=== PATIENT | male | born 1930 | race Caucasian/White ===

== ENCOUNTER 2020-12-11 20:29 | Inpatient (IN) | payer MEDICARE ==
--- NOTE | 2020-12-11 21:20 | ED ---
General Adult HPI - General Chief complaint: Recheck/Abnormal Lab/Rx Stated complaint: abn labs Time Seen by Provider: 12/11/20 20:52 Source: patient, EMS, RN notes reviewed Mode of arrival: EMS - History of Present Illness Initial comments: 89-year-old male who presented as a transfer from [facility] in [facility]. Patient is not accompanied by any of the medical record. He had presented there with generalized weakness and pain in his left leg which she states is been going on for several weeks. He's had multiple falls at home. He does report some dyspnea and apparently they have discovered a large pleural effusion during the patient's workup. He was anemic and had an elevated troponin. These records will be requested. - Related Data Home Medications Medication Instructions Recorded Confirmed Docusate [Colace] 100 mg PO DAILY PRN 12/11/20 12/11/20 Ibuprofen [Motrin Ib] 200 mg PO Q8H PRN 12/11/20 12/11/20 Allergies Allergy/AdvReac Type Severity Reaction Status Date / Time No Known Allergies Allergy Verified 12/11/20 21:51 Review of Systems ROS Statement: Those systems with pertinent positive or pertinent negative responses have been documented in the HPI. ROS Other: All systems not noted in ROS Statement are negative. Past Medical History Past Medical History: No Reported History Past Surgical History: No Surgical Hx Reported, Unable to Obtain Smoking Status: Never smoker Past Alcohol Use History: None Reported Past Drug Use History: None Reported General Exam General appearance: alert, in distress (Respiratory distress) Head exam: Present: normocephalic Eye exam: Present: PERRL, periorbital swelling, other (Periorbital ecchymosis and edema) Neck exam: Present: normal inspection. Absent: tenderness, meningismus Respiratory exam: Present: respiratory distress, rales, decreased breath sounds Cardiovascular Exam: Present: regular rate, normal rhythm GI/Abdominal exam: Present: soft. Absent: distended, tenderness Extremities exam: Present: tenderness, pedal edema, other (Patient has significant edema and erythema as well as petechiae and hemorrhage into the skin of the left lower extremity. The left upper extremity is ecchymotic and swollen) Neurological exam: Present: alert Skin exam: Present: warm Course Vital Signs 12/11/20 20:35 Temperature 98.3 F Pulse Rate 82 Respiratory 20 Rate Blood Pressure 110/55 O2 Sat by Pulse 92 L Oximetry - Reevaluation(s) Reevaluation #1: 12/11/20 22:04 I did discuss at length the patient's critical status with his lyirdhuu-si-jur Kathy who will be coming tomorrow with the patient's 2 other daughters. The patient does have a no CODE STATUS. He has been made a DO NOT RESUSCITATE. Medical Decision Making - Medical Decision Making 89-year-old male sent from outside hospital with initial chief complaint of pain in the left arm and left leg falls. Patient had been living alone. He was transferred to this institution due to the fact that all of the surrounding hospitals were unable to accept transfer patient's. Patient had been transferred for both cardiology and pulmonology consultation. He been noted to have a large left pleural effusion on CT of the chest. This was negative for pulmonary embolism according to the medical record. He also had a brain CT whi ch is negative for intracranial hemorrhage. He had ultrasound of the left upper extremity and bilateral lower extremities which were negative for DVT. He had a significant anemia at 6.8. He had a leukocytosis 16.5. He had normal creatinine, relatively normal electrolytes. He had been given 1 g of ceftriaxone prior to transfer for cellulitis. He had been transfused one unit of packed RBCs for anemia. Additionally he had an elevated troponin at 0.47. This was not treated with anticoagulation secondary to this patient's anemia. I did repeat all laboratory testing and blood cultures. An additional gram of ceftriaxone was ordered as well as vancomycin for left leg cellulitis. His troponin will be trended repeat CBC has been ordered regarding his anemia status post transfusion. Both cardiology and pulmonology had been placed on consult. Chest x-ray shows near complete left pleural effusion and CHF. Patient had received both IV fluids and blood transfusion prior to transport. Lasix has been initiated. Case discussed with EM Disposition Clinical Impression: Anemia, Elevated troponin, Cellulitis, Pleural effusion, Do not resuscitate Disposition: ADMITTED IP TO THIS HOSP Condition: Serious Is patient prescribed a controlled substance at d/c from ED?: No Decision to Admit Reason: Admit from EC Decision Date: 12/11/20 Decision Time: 21:49
[2020-12-11] MEDS ORDERED: NALOXONE 0.4 MG/ML 1 ML VIAL IV PRN (21:42)
[2020-12-11] MEDS ORDERED: cefTRIAXone IN SWFI 1,000 MG/10 ML SYRINGE IVP STA (21:44)
[2020-12-11] MEDS ORDERED: VANCOMYCIN IV PER PHARMACY 1 EACH MISC MISCELLANE PRN (21:45)
[2020-12-11] MEDS ORDERED: PANTOPRAZOLE 40 MG/10 ML VIAL IVP STA (21:45)
--- NOTE | 2020-12-11 21:45 | XR ---
EXAMINATION TYPE: XR chest 2V DATE OF EXAM: 12/11/2020 COMPARISON: NONE HISTORY: Weakness TECHNIQUE: 3 views FINDINGS: Heart is moderately enlarged. There is large left pleural effusion and left side pulmonary consolidation. There is pulmonary congestion. Thoracic aorta is atheromatous. 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 IMPRESSION: Left side pulmonary consolidation and pleural fluid. Congestive heart failure.
[2020-12-11] MEDS ORDERED: FUROSEMIDE 10 MG/ML 4 ML VIAL IV STA (21:49)
[2020-12-11 22:20] LABS: Anisocytosis Moderate; HCT 23.9 % (39.0-53.0); HGB 7.5 gm/dL (13.0-17.5); Hypochromasia Marked; MCH 29.9 pg (25.0-35.0); MCHC 31.5 g/dL (31.0-37.0); MCV 94.9 fL (80.0-100.0); Macrocytosis Slight; Mean Platelet Volume 11.4; Platelet Count 62 k/uL (150-450); Poikilocytosis Marked; RBC 2.52 m/uL (4.30-5.90); RDW 21.7 % (11.5-15.5)
[2020-12-11 22:30] LABS: Albumin 2.8 g/dL (3.5-5.0); Calcium 8.1 mg/dL (8.4-10.2); Potassium 5.2 mmol/L (3.5-5.1); Total Protein 5.9 g/dL (6.3-8.2)
[2020-12-11 22:37] LABS: INR 1.4 (<1.2); Partial Thromboplastin Time 24.8 sec (22.0-30.0); Prothrombin Time 14.5 sec (9.0-12.0)
[2020-12-11] MEDS ORDERED: VANCOMYCIN 1,500 MG in SODIUM CHLORIDE 0.9% 250 ML IVPB ONE (23:00)
[2020-12-11] MEDS: MORPHINE SULFATE 2 MG/ML SYRINGE IVP PRN (23:15)
[2020-12-11 23:52] LABS: Band Neutrophils % 5 %; Metamyelocytes % 7 %; Myelocytes % 1 %; Neutrophils % (M) 21 %; Nucleated Red Blood Cells 30 /100 WBC (0-0); Promyelocytes % 5 %; Total Cells Counted 200
[2020-12-11 23:53] LABS: Anisocytosis (M) Present; Blast Cells # (M) 0.52 k/uL (0); Hypochromasia (M) Present; Lymphocytes # (M) 3.01 k/uL (1.0-4.8); Metamyelocytes # (M) 0.92 k/uL (0); Monocytes # (M) 4.59 k/uL (0-1.0); Myelocytes # (M) 0.13 k/uL (0); Polychromasia Present; Promyelocytes # (M) 0.66 k/uL (0); WBC 13.1 k/uL (3.8-10.6)
[2020-12-12] MEDS: ACETAMINOPHEN TAB 325 MG TAB PO PRN ×2 (02:34→09:17)
[2020-12-12 05:40] LABS: Calcium 8.2 mg/dL (8.4-10.2); Potassium 4.5 mmol/L (3.5-5.1)
[2020-12-12 05:45] LABS: Anisocytosis Moderate; HCT 24.8 % (39.0-53.0); HGB 7.4 gm/dL (13.0-17.5); Hypochromasia Marked; MCH 28.8 pg (25.0-35.0); MCHC 29.7 g/dL (31.0-37.0); MCV 97.2 fL (80.0-100.0); Macrocytosis Moderate; Mean Platelet Volume 12.8; Platelet Count 73 k/uL (150-450); Poikilocytosis Marked; RBC 2.56 m/uL (4.30-5.90); RDW 21.5 % (11.5-15.5)
[2020-12-12] MEDS ORDERED: ALPRAZolam 0.25 MG TAB PO STA (06:08)
[2020-12-12 06:48] LABS: Anisocytosis (M) Present; Band Neutrophils % 13 %; Blast Cells # (M) 0.62 k/uL (0); Lymphocytes # (M) 2.18 k/uL (1.0-4.8); Metamyelocytes # (M) 0.62 k/uL (0); Metamyelocytes % 6 %; Monocytes # (M) 2.81 k/uL (0-1.0); Myelocytes # (M) 0.52 k/uL (0); Myelocytes % 5 %; Neutrophils % (M) 19 %; Nucleated Red Blood Cells 35 /100 WBC (0-0); Promyelocytes # (M) 0.42 k/uL (0); Promyelocytes % 4 %; Total Cells Counted 200; WBC 10.4 k/uL (3.8-10.6)
[2020-12-12 06:49] LABS: Hypochromasia (M) Present; Large Platelets Present; Mixed Population RBC Present; Polychromasia Present
--- NOTE | 2020-12-12 08:59 | US ---
EXAMINATION TYPE: US chest DATE OF EXAM: 12/12/2020 COMPARISON: Correlation radiographs 12/11/2020 CLINICAL HISTORY: 89-year-old male left chest pleural effusion. SOB, Pl effusion. Manager Wellness notes: Patient was a 2 person hold TECHNIQUE: Targeted ultrasound of the posterior lower left hemithorax. FINDINGS: EXAM MEASUREMENTS: Left Pleural Effusion pocket size: 10.9 cm Left skin surface to fluid distance: 4.0 cm Left side marked for possible thoracentesis outside the dept. Pulmonologists are able to review the images in the patient?s EMR. IMPRESSIONS: At least a moderate left pleural effusion.
[2020-12-12] MEDS: FUROSEMIDE 10 MG/ML 4 ML VIAL IV SCH ×2 (09:17→20:12)
--- NOTE | 2020-12-12 11:11 | ECHOF ---
Referral Reason:LV function MEASUREMENTS -------- HEIGHT: 182.9 cm WEIGHT: 81.6 kg BP: IVSd: 1.3 cm (0.6 - 1.1) LVIDd: 3.8 cm (3.9 - 5.3) LVPWd: 1.4 cm (0.6 - 1.1) IVSs: 1.4 cm LVIDs: 2.8 cm LVPWs: 1.3 cm Ao Diam: 3.7 cm (2.0 - 3.7) AV Cusp: 1.4 cm (1.5 - 2.6) MV EXCURSION: 23.601 mm (> 18.000) MV EF SLOPE: 134 mm/s (70 - 150) EPSS: 0.6 cm FINDINGS -------- Undetermined rhythm. This was a technically adequate study. Overall left ventricular systolic function is mild-moderately impaired with, an EF between 40 - 45 %. The right ventricle is normal in size. The left atrial size is normal. There is mild aortic valve sclerosis. There is no evidence of aortic regurgitation. Mild mitral annular calcification present. Mild mitral regurgitation is present. Mild tricuspid regurgitation present. Right ventricular systolic pressure is normal at < 35 mmHg. There is no pulmonic regurgitation present. Large Pleural Effusion. CONCLUSIONS -------- 1. Overall left ventricular systolic function is mild-moderately impaired with, an EF between 40 - 45 %. 2. The right ventricle is normal in size. 3. The left atrial size is normal. 4. There is mild aortic valve sclerosis. 5. Mild mitral annular calcification present. 6. Mild mitral regurgitation is present. 7. Mild tricuspid regurgitation present. 8. Large Pleural Effusion. GROUNDS PERSON: Cristy Ogden RDCS
[2020-12-12] MEDS ORDERED: DOCUSATE 100 MG CAP PO PRN (12:36)
--- NOTE | 2020-12-12 12:41 | XR ---
EXAMINATION TYPE: XR chest 1V portable DATE OF EXAM: 12/12/2020 Comparison: 12/11/2020 Clinical History: 89-year-old male status post left thoracentesis Findings: Heart is borderline enlarged. Mild interstitial density. Significant interval improvement of the chelsie ent's previous left pleural effusion. A small left pleural effusion remains. Mild patchy bibasilar de nsities. Unable to exclude a trace left apical 2.5 mm pneumothorax. Impression: 1. Status post thoracentesis with residual small left pleural effusion. 2. Unable to exclude a trace 2.5 mm left apical pneumothorax. Follow-up recommended. 3. Mild patchy bibasilar areas of atelectasis and/or consolidation.
[2020-12-12] MEDS: VANCOMYCIN 1,500 MG in SODIUM CHLORIDE 0.9% 250 ML IVPB SCH (12:54)
--- NOTE | 2020-12-12 13:09 | P.CRDCN ---
History of Present Illness History of present illness: HISTORY OF PRESENTING ILLNESS This is a pleasant 89-year-old male with no significant past medical history. Unknown if patient follows with a perioperative educator. We have been asked to see in consultation for elevated troponin. Patient is seen and examined in the emergency department. He was a transfer from [facility] in [facility]. He had presented there with generalized weakness and pain in his left leg and had multiple falls at home. Patient had been transferred for both card iology and pulmonology consultation. Patient seen and examined at bedside he is confused, He is alert, oriented to self. He is unsure what brought him to the hospital. He denies any pain, chest pain, palpitations, abdominal pain, fever, chills, nausea, vomiting. He is unsure how long his left arm, left leg, and left side have been bruised. He denies history of bleeding problems, coronary artery disease, [place], diabetes, cancer. Echocardiogram obtained which revealed ejection fraction of 4045 percent, mild aortic valve sclerosis, mild mitral regurgitation, mild tricuspid regurgitation, large pleural effusion. Workup at [facility] CT chest revealed large left pleural effusion, with atelectasis of the left lung. This was negative for pulmonary embolism according to the record Fecal occult blood test was negative Brain CT which is negative for intracranial hemorrhage. Ultrasound of the left upper extremity and bilateral lower extremities which were negative for DVT. Labs revealed- he had a significant anemia at 6.8, Lactate was 6.3, WBC 16.8, platelets 65, BUN 17, serum creatinine 0.8, sodium 134, potassium 4.5. elevated troponin at 0.47. He was given 1 g of ceftriaxone prior to transfer for left and right lower extremity cellulitis. He has recieved 1 unit of PRBC for anemia EKG sinus tachycardia, no significant ST-T wave abnormalities Chest xray Large left pleural effusion left sided consoidation, pulmonary congestion. Aneurysm of the aortic arch Laboratory reviewed, WBC 10.4, hemoglobin 10.4, platelets 73, sodium 133, potassium 4.5, BUN 22, serum creatinine 1.07, lactate 4.0, trace 3.04, 0.059 proBNP 15,400 REVIEW OF SYSTEMS At the time of my exam: CONSTITUTIONAL: Denies fever or chills. CARDIOVASCULAR: Denies chest pain, shortness of breath, palpitations. RESPIRATORY: Denies cough. GASTROINTESTINAL: Denies abdominal pain, diarrhea, constipation, nausea or vomiting. MUSCULOSKELETAL: Denies myalgias. NEUROLOGIC: Denies numbness, tingling, headacbe or weakness. GENITOURINARY: Denies burning, hematuria or urgency with micturation. HEMATOLOGIC: +anemia He denies history of bleeding PHYSICAL EXAMINATION Blood pressure 111/79 heart rate and 2 afebrile and maintaining oxygen saturation 90% on 4 L nasal cannula CONSTITUTIONAL: Confused, restless HEENT: Head is normocephalic. Pupils are equal, round. No JVD. Bruising on right side of face CHEST EXAMINATION: Lungs are rhonci and diminished bilaterally to auscultation. HEART EXAMINATION: Regular rate and rhythm. S1, S2 heard. Systolic murmur noted. No gallops or rub. ABDOMEN: Soft, nontender. Positive bowel sounds. EXTREMITIES: Decreased pulses in bilateral lower extremities. Moderate bilaterally lower extremity edema SKIN: Petechiae of the bilateral lower extremities, Dependent non-blanchable redness left lower extremity up to his knee, Dependent non-blanchable redness left upper extremity, ecchymosis left side of rib and abdomen. NEUROLOGIC EXAMINATION: Patient is awake, alert. Confused ASSESSMENT Acute Anemia s/p 1unit of PRBC Elevated troponin, not indicative of acute coronary syndrome Acute systolic heart failure Large Left pleural effusion Altered mental status Thrombocytopenia Lactic acidosis Blast cells positive of cbc - uknown if patient has a history of cancer Petechiae and dependent non-blanchable redness of left lower extremity, left upper extremity and left side of rib- possibly could be related to patient on floor for long periods of time if on left side. PLAN Echo obtained and reviewed From a cardiology perspective, we will continue IV Diuresis Holding beta joy and ACEI due to hypotension Monitor renal function and electrolytes Further recommendations based on clinical course Nurse Practitioner note has been reviewed, I agree with a documented findings and plan of care. Patient was seen and examined. Past Medical History Past Medical History: No Reported History Past Surgical History: No Surgical Hx Reported, Unable to Obtain Smoking Status: Never smoker Past Alcohol Use History: None Reported Past Drug Use History: None Reported Medications and Allergies Home Medications Medication Instructions Recorded Confirmed Type Docusate [Colace] 100 mg PO DAILY PRN 12/11/20 12/11/20 History Ibuprofen [Motrin Ib] 200 mg PO Q8H PRN 12/11/20 12/11/20 History Allergies Allergy/AdvReac Type Severity Reaction Status Date / Time No Known Allergies Allergy Verified 12/11/20 21:51 Physical Exam Vitals: Vital Signs Temp Pulse Resp BP Pulse Ox 12/12/20 06:36 92 18 107/61 100 12/12/20 02:37 102 H 26 H 110/83 100 12/12/20 01:42 101.3 F H 107 H 26 H 113/65 98 12/11/20 23:21 102 H 20 100 12/11/20 22:15 88 20 116/80 94 L 12/11/20 21:03 20 12/11/20 20:35 98.3 F 82 20 110/55 92 L Intake and Output 12/11/20 12/12/20 12/12/20 22:59 06:59 14:59 Other: Weight 81.647 kg Results 12/12/20 05:00 12/12/20 05:00 Cardiac Enzymes 12/11/20 12/11/20 12/12/20 Range/Units 21:32 21:32 05:00 AST 64 H (17-59) U/L Troponin I 0.420 H* 0.595 H* (0.000-0.034) ng/mL Coagulation 12/11/20 Range/Units 21:32 PT 14.5 H (9.0-12.0) sec APTT 24.8 (22.0-30.0) sec CBC 12/11/20 12/12/20 Range/Units 21:32 05:00 WBC 13.1 H 10.4 (3.8-10.6) k/uL RBC 2.52 L 2.56 L (4.30-5.90) m/uL Hgb 7.5 L 7.4 L (13.0-17.5) gm/dL Hct 23.9 L 24.8 L (39.0-53.0) % Plt Count 62 L 73 L (150-450) k/uL Comprehensive Metabolic Panel 12/11/20 12/12/20 Range/Units 21:32 05:00 Sodium 130 L 133 L (137-145) mmol/L Potassium 5.2 H 4.5 (3.5-5.1) mmol/L Chloride 106 106 (98-107) mmol/L Carbon Dioxide 15 L 19 L (22-30) mmol/L BUN 20 22 H (9-20) mg/dL Creatinine 0.85 1.07 (0.66-1.25) mg/dL Glucose 160 H 155 H (74-99) mg/dL Calcium 8.1 L 8.2 L (8.4-10.2) mg/dL AST 64 H (17-59) U/L ALT 20 (4-49) U/L Alkaline Phosphatase 61 (38-126) U/L Total Protein 5.9 L (6.3-8.2) g/dL Albumin 2.8 L (3.5-5.0) g/dL Current Medications Generic Name Dose Route Start Last Admin Trade Name Freq PRN Reason Stop Dose Admin Acetaminophen 650 mg 12/11/20 21:42 12/12/20 02:34 Acetaminophen Tab 325 Mg Tab PO 650 mg Q6HR PRN Administration Mild Pain or Fever > 100.5 Furosemide 40 mg 12/12/20 09:00 Furosemide 10 Mg/Ml 4 Ml Vial IV Q12HR [facility] Vancomycin HCl 1,250 mg/ 250 mls @ 125 mls/hr 12/12/20 11:00 Sodium Chloride IVPB Q12H [facility] Miscellaneous Information 1 each 12/11/20 21:45 Vancomycin Iv Per Pharmacy 1 Each Mis MISCELLANE DIRECTED PRN Per Protocol Protocol Morphine Sulfate 2 mg 12/11/20 23:10 12/11/20 23:15 Morphine Sulfate 2 Mg/Ml Syringe IVP 2 mg Q6HR PRN Administration Pain/Discomfort Naloxone HCl 0.2 mg 12/11/20 21:42 Naloxone 0.4 Mg/Ml 1 Ml Vial IV Q2M PRN Opioid Reversal Intake and Output 12/11/20 12/12/20 12/12/20 22:59 06:59 14:59 Other: Weight 81.647 kg 12/12/20 05:00 12/12/20 05:00
--- NOTE | 2020-12-12 13:19 | P.CNPUL ---
History of Present Illness Consult date: 12/12/20 Requesting physician: Arjun Gonzalez Reason for consult: dyspnea, other Chief complaint: generalized weakness, large left sided pleural effusion History of present illness: 89-year-old male patient who presented as a transfer from [facility] in [facility]. apparently he was found on the floor after he had fallen, and it was unknown how much time he had spent on the floor. he reportedly was found by one of his family members. He lives alone. He's had multiple falls at home. he has multiple areas of bruising on his body , upper and lower extremities and torso. He is generally weak, and he is having increased pain and some pain in his left leg which is particularly more bruised and swollen. he reports some dyspnea, but no chest discomfort. he was found to be anemic and had an elevated troponin. chest x-ray on admission showed a large left-sided pulmonary consolidation and pleural fluid. There was pulmonary congestion, there was a tracheal shift to the right. admission labs showed hemoglobin is 7.5, his platelet count was 62, white blood cell count was 13.1, his last cells were 4, INR is 1.4, sodium was 130, potassium is 5.2, chloride is 106, CO2 is 15, BUN was 20, creatinine 0.85, plasma lactic acid was 2.8, calcium was 8.1, total bilirubin was 2.0, AST was 64, ALT was 20, alkaline phosphatase was 61, troponin was 0.4-0, proBNP was 15,400, he was tested for COVID-19 and he was found to be negative. He is a poor historian, however he is awake and alert, he thinks she is at home, he is able to answer simple questions. is febrile with a temp of 101.3 Fahrenheit rectal, slightly tachycardic, in sinus mechanism, he is currently on 6 L of oxygen his pulse ox is 98%, blood pressure is 113/65. he was placed on broad-spectrum antibiotics in the form of Rocephin, and vancomycin was also added. he was started on IV Lasix at 40 mg every 12 hours. patient is unable to tell us about his medical history, but from reviewing his home medications he only takes Motrin and Colace. echocardiogram was completed showing EF between 40-45% , no evidence of aortic regurgitation, mild MR, mild TR, large pleural effusion. ultrasound of the chest has been completed showing 10.9 cm pleural fluid pocket on the left. After contacting his family ( his [id number] and his son who are currently driving under way to the hospital) consent was obtained for left-sided thoracentesis. Patient's CODE STATUS is DO NOT RESUSCITATE, and the [id number] had stated that hospice and comfort care will possibly be initiated in view of patient's general decline recently. after positioning the patient, and also explained the procedure to him and obtaining verbal consent from the patient himself , 1.8 L of grossly bloody fluid was removed from the left pleural space uneventfully. patient tolerated procedure very well, he is breathing easier, had some slight cough after the procedure, but no significant discomfort, he is setting 100% on 4 L, follow-up chest x-ray showing mild interstitial density, and significant interval improvement of the patient's previous left pleural effusion, there is a small left pleural effusion still remains, mild patchy basilar densities. And possibility of a trace left apical 2.5 mm pneumothorax was a difficult to exclude. And follow-up was recommended. Review of Systems All systems: negative Constitutional: Reports weakness, Denies chills, Denies fever Eyes: denies blurred vision, denies pain Ears, nose, mouth and throat: Denies headache, Denies sore throat Cardiovascular: Denies chest pain, Denies shortness of breath Respiratory: Reports cough, Reports dyspnea Gastrointestinal: Denies abdominal pain, Denies diarrhea, Denies nausea, Denies vomiting Musculoskeletal: Reports frequent falls, Reports gait dysfunction, Reports limitation of motion, Denies myalgias Musculoskeletal: bilateral: ankle swelling Integumentary: Denies pruritus, Denies rash Neurological: Reports gait dysfunction, Reports weakness, Denies numbness Psychiatric: Reports confusion, Denies anxiety, Denies depression Endocrine: Denies fatigue, Denies weight change Past Medical History Past Medical History: No Reported History Past Surgical History: No Surgical Hx Reported, Unable to Obtain Smoking Status: Never smoker Past Alcohol Use History: None Reported Past Drug Use History: None Reported Medications and Allergies Home Medications Medication Instructions Recorded Confirmed Type Docusate [Colace] 100 mg PO DAILY PRN 12/11/20 12/11/20 History Ibuprofen [Motrin Ib] 200 mg PO Q8H PRN 12/11/20 12/11/20 History Allergies Allergy/AdvReac Type Severity Reaction Status Date / Time No Known Allergies Allergy Verified 12/11/20 21:51 Physical Exam Vitals: Vital Signs Temp Pulse Resp BP Pulse Ox 12/12/20 09:27 99.0 F 90 20 108/66 100 12/12/20 07:40 98.4 F 92 20 111/79 98 12/12/20 06:36 92 18 107/61 100 12/12/20 02:37 102 H 26 H 110/83 100 12/12/20 01:42 101.3 F H 107 H 26 H 113/65 98 12/11/20 23:21 102 H 20 100 12/11/20 22:15 88 20 116/80 94 L 12/11/20 21:03 20 12/11/20 20:35 98.3 F 82 20 110/55 92 L Intake and Output 12/11/20 12/12/20 12/12/20 22:59 06:59 14:59 Other: Weight 81.647 kg GENERAL EXAM: Alert, very pleasant, 89-year-old white male, resting on a stretcher in the emergency department, confused, but he is able to answer basic questions, he thought he was at home, he was disoriented to place, but fairly cooperative, and able to verbalize his symptoms, currently on 6 L of oxygen a pulse ox of 98% comfortable in no apparent distress. patient has multiple areas of bruises on his face, upper and lower extremities, with significantly more bruising and swelling in the left leg, left arm, or areas of bruising on his back, chest, abdomen. he has a history of frequent falls at home HEAD: Normocephalic/atraumatic. EYES: Normal reaction of pupils, equal size. Conjunctiva pink, sclera white. NOSE: Clear with pink turbinates. THROAT: No erythema or exudates. NECK: No masses, no JVD, no thyroid enlargement, no adenopathy. CHEST: No chest wall deformity. Symmetrical expansion. LUNGS: Equal air entry with management of sounds over mid and lower lung jacobo of the left lung CVS: Regular rate and rhythm, normal S1 and S2, no gallops, no murmurs, no rubs ABDOMEN: Soft, nontender. No hepatosplenomegaly, normal bowel sounds, no guarding or rigidity. EXTREMITIES: No clubbing, nonpitting 1+edema bilateral lower extremities, no cyanosis, 2+ pulses and upper and lower extremities. MUSCULOSKELETAL: Muscle strength and tone normal.patient has stiffness, and weakness SPINE: No scoliosis or deformity SKIN: No rashes CENTRAL NERVOUS SYSTEM: Alert and oriented -1. No focal deficits, tone is normal in all 4 extremities. PSYCHIATRIC: Alert and oriented -1. Appropriate affect. Intact judgment and insight. Results - Laboratory Findings CBC and BMP: 12/12/20 05:00 12/12/20 05:00 PT/INR, D-dimer PT 14.5 sec (9.0-12.0) H 12/11/20 21:32 INR 1.4 (<1.2) H 12/11/20 21:32 Abnormal lab findings: Abnormal Labs 12/11/20 12/11/20 12/11/20 21:32 21:32 21:32 WBC 13.1 H RBC 2.52 L Hgb 7.5 L Hct 23.9 L MCHC RDW 21.7 H Plt Count 62 L Blast Cells % 4 H* Monocytes # (Manual) 4.59 H Metamyelocytes # (Man) 0.92 H Myelocytes # (Manual) 0.13 H Promyelocytes # (Man) 0.66 H Blast Cells # (Man) 0.52 H Nucleated RBCs 30 H PT 14.5 H INR 1.4 H Sodium 130 L Potassium 5.2 H Carbon Dioxide 15 L BUN Glucose 160 H Plasma Lactic Acid Shamir Calcium 8.1 L Total Bilirubin 2.0 H AST 64 H Troponin I Total Protein 5.9 L Albumin 2.8 L 12/11/20 12/11/20 12/12/20 21:32 21:32 01:24 WBC RBC Hgb Hct MCHC RDW Plt Count Blast Cells % Monocytes # (Manual) Metamyelocytes # (Man) Myelocytes # (Manual) Promyelocytes # (Man) Blast Cells # (Man) Nucleated RBCs PT INR Sodium Potassium Carbon Dioxide BUN Glucose Plasma Lactic Acid Shamir 2.8 H* 4.0 H* Calcium Total Bilirubin AST Troponin I 0.420 H* Total Protein Albumin 12/12/20 12/12/20 12/12/20 05:00 05:00 05:00 WBC RBC 2.56 L Hgb 7.4 L Hct 24.8 L MCHC 29.7 L RDW 21.5 H Plt Count 73 L Blast Cells % 6 H* Monocytes # (Manual) 2.81 H Metamyelocytes # (Man) 0.62 H Myelocytes # (Manual) 0.52 H Promyelocytes # (Man) 0.42 H Blast Cells # (Man) 0.62 H Nucleated RBCs 35 H PT INR Sodium 133 L Potassium Carbon Dioxide 19 L BUN 22 H Glucose 155 H Plasma Lactic Acid Shamir Calcium 8.2 L Total Bilirubin AST Troponin I 0.595 H* Total Protein Albumin 12/12/20 08:19 WBC RBC Hgb Hct MCHC RDW Plt Count Blast Cells % Monocytes # (Manual) Metamyelocytes # (Man) Myelocytes # (Manual) Promyelocytes # (Man) Blast Cells # (Man) Nucleated RBCs PT INR Sodium Potassium Carbon Dioxide BUN Glucose Plasma Lactic Acid Shamir Calcium Total Bilirubin AST Troponin I 0.587 H* Total Protein Albumin - Diagnostic Findings Chest x-ray: report reviewed Additional studies: Ultrasound of the chest reviewed, echocardiogram reviewed, follow-up chest x- ray after left-sided thoracentesis reviewed Assessment and Plan Plan: assessment: #1. Acute hypoxic respiratory failure related to large left-sided pleural effusion, possibility of acute CHF exacerbation and underlying pneumonia. COVID- 19 PCR was negative #2. Large left-sided pleural effusion, status post left-sided thoracentesis would removal of 1.8 L of grossly bloody effusion on 12/12/[address] Franco, and the pleural fluid was sent for analysis. This could be related to traumatic hemothorax related to frequent falls, and possibility of malignancy is also considered. Pleural fluid was sent for cytology #3. Anemia, likely related to acute blood loss, large hemothorax, possible traumatic. patient presented with a hemoglobin of 7.5. #4. Possible underlying pneumonia, patient is currently on a combination of Rocephin, vancomycin was added #5. Thrombocytopenia, multifactorial, possibly related to underlying sepsis, and trauma #6. Lactic acidosis, rule out possibility of sepsis #7. Mild troponin elevation, cardiology is following, rule out possibility of non-ST limited myocardial infarction #8. Acute exacerbation of systolic CHF #9. Multiple falls at home, and patient was reportedly found down by his family, and it is unknown how much time he had spent on the ground #10. Multiple areas of ecchymosis all over the body, including upper and lower extremities, back, torso, and face related to falls #11. Overall generally declining medical state according to the patient's family, however patient lives alone according to the family reports. Family is currently considering palliative care hospice referral Plan: Patient tolerated procedure very well, 1.8 L of bloody effusion was removed and sent for analysis Wean FiO2 Follow-up chest x-ray tomorrow Continue empiric antibiotics Blood cultures are pending We'll try to collect sputum culture as well Procalcitonin Patient's family is on their way to the hospital and considering palliative care hospice referral We'll continue to follow I performed a history & physical examination of the patient and discussed their management with my nurse practitioner, Kayleigh Dobbs. I reviewed the nurse practitioner's note and agree with the documented findings and plan of care. Lung sounds are positive for diminished breath sounds throughout the lung jacobo. The findings and the impression was discussed with the patient. I attest to the documentation by the nurse practitioner. Time with Patient: Greater than 30
--- NOTE | 2020-12-12 14:07 | OP ---
OPERATIVE REPORT OPERATIVE REPORT: Left-sided thoracentesis. PREOPERATIVE DIAGNOSIS: Large left pleural effusion. POSTOPERATIVE DIAGNOSIS: Large left-sided hemothorax, most likely traumatic in nature. PROCEDURE DESCRIPTION: Consent was obtained from his [id number]-[id number] and son over the phone. The patient was placed in a sitting-upright position. The area of the left the chest was prepared in a sterile fashion and drapes were applied. The ultrasound marking was basically at the level of the eighth intercostal space and posterior axillary line. The area was again prepared in a sterile fashion. Drapes were applied, and that site was anesthetized locally with 2 mL of 1% lidocaine. Then a 26-gauge needle was inserted into the site, into the pleural space, until the fluid was obtained, and the fluid was clearly grossly bloody. Then a small tiny incision was made. A standard thoracentesis catheter and needle were used. The needle was inserted at the same site and advanced into the pleural space. As soon as the fluid was obtained, the catheter was advanced over the needle and the needle was pulled out of the pleural space. Roughly 1.8 L of grossly bloody pleural effusion was drained from the left pleural space. The patient tolerated the procedure well; no evidence of any complications. Chest x-ray showed no complications. The fluid was sent for different diagnostic studies. MMODL / IJN: [id number] /
--- NOTE | 2020-12-12 14:17 | P.HPIM ---
History of Present Illness H&P Date: 12/12/20 12/12/2020 This is a 89-year-old male, patient is alert and oriented times person. Patient was transferred to our facility from [facility], for pulmonary and cardiology services. Per paperwork, patient does not take any home medications, there are no medical diagnoses. Patient is a very poor historian, he states that he does live by himself, he states that he does not see a physician. Elva fuentes is able to tell me that he has a son that lives close by, and he has a daughter that lives in [place]. Patient denies any chest pain, shortness of breath, cough. Patient denies any generalized pain. Patient states that the cellulitis to his left lower leg has presented like that for quite a while, he does admit to frequent falls at home. Patient had an extensive workup at [facility], bilateral duplex Doppler was negative for DVT, as well as the left upper extremity was negative for DVT. In addition, patient had a brain CT that was negative for intracranial hemorrhage, CT of the chest that was negative for pulmonary embolism via medical records from [facility]. Alfonso medeiros was found to have a hemoglobin of 6.8, negative Hemoccult, did receive 1 unit of PRBCs. His hemoglobin today is 7.4. Patient was found to have left- sided pulmonary consolidation and pleural fluid, and congestive heart failure on a chest x-ray. It is unsure whether this is acute or chronic. Patient was evaluated by pulmonary services today who ordered a chest ultrasound, plan is for patient to undergo a left chest thoracentesis with Dr. Wilcox today. Patient had an echocardiogram done that revealed an ejection fraction of 40-45%, mild mitral regurgitation, mild tricuspid regurgitation, large pleural effusion. Cardiac enzymes have remained positive 3, 0.420, 0.595, 0.587. Lactic acid on admission was 2.8, patient was treated with a dose of IV Rocephin, IV Vanco. Repeat lactic acid was 4, at this time patient was monitored due to findings of a possible acute congestive heart failure, patient was not fluid resuscitated. Repeat lactic acid this morning was 1.8. Patient is continued on IV Lasix 40 mg every 12 hours. Per family, when patient was brought into the ER, expressed some desire to discuss comfort measures for this patient. Family will be present at the bedside later today. Patient is a DO NOT RESUSCITATE. REVIEW OF SYSTEMS: CONSTITUTIONAL: Reports fever, no malaise, no fatigue. HEENT: No recent visual problems or hearing problems. Denied any sore throat. CARDIOVASCULAR: No chest pain, orthopnea, PND, no palpitations, no syncope. PULMONARY: No shortness of breath, no cough, no hemoptysis. GASTROINTESTINAL: No diarrhea, no nausea, no vomiting, no abdominal pain. NEUROLOGICAL: No headaches, no weakness, no numbness. HEMATOLOGICAL: Denies any bleeding or petechiae. GENITOURINARY: Denies any burning micturition, frequency, or urgency. MUSCULOSKELETAL/RHEUMATOLOGICAL: Denies any joint pain, swelling, or any muscle pain. ENDOCRINE: Denies any polyuria or polydipsia. The rest of the 14-point review of systems is negative. Patient is a poor historian, denied all complaints. PHYSICAL EXAMINATION: GENERAL: The patient is alert and oriented x1, patient does have some mild expiratory wheeze, audible. Well developed. HEENT: Pupils are round and equally reacting to light. EOMI. No scleral icterus. No conjunctival pallor. Normocephalic, atraumatic. No pharyngeal erythema. No thyromegaly. CARDIOVASCULAR: S1 and S2 present. No murmurs, rubs, or gallops. PULMONARY: Diminished lung sounds, with expiratory wheeze. ABDOMEN: Soft, nontender, nondistended, normoactive bowel sounds. No palpable organomegaly. MUSCULOSKELETAL: No joint swelling or deformity. EXTREMITIES: No cyanosis, clubbing. +1 mild pitting edema bilateral NEUROLOGICAL: Gross neurological examination did not reveal any focal deficits. SKIN: Some scattered ecchymosis, left lower extremity from knee to ankle di splays a purplish red color. There is not a break in the skin. Assessment and Plan: Assessment: Acute hypoxic respiratory failure secondary to CHF, on 4 L NC, on IV Lasix Sepsis due to left lower extremity chronic cellulitis and possible pneumonia, pending pleural fluid cultures, on IV antibiotics, lactic acid 1.8, consultation to ID Lactic acidosis, secondary to left lower extremity cellulitis, sepsis, improving with antibiotics. Currently level is 1.8. Blood cultures pending. Congestive heart failure, acute on chronic, systolic, ejection fraction 40-45% chest x-ray reveals congestive heart failure. BNP - 15,400. Patient will continue on IV Lasix 40 mg every 12. Pleural effusion, plan is for patient to undergo a left thoracentesis today with pulmonary services. Pending pathology Acute anemia, no past medical history available, hemoglobin 7.4 status post 1 unit PRBC at [place]. Recheck CBC in the a.m. Monitor for signs of bleeding. Critical blast cell6, oncology consultation Left lower extremity cellulitis, appears chronic in nature, patient denies r eceiving medical attention for this. Continue with IV antibiotics. Hypervolemic hyponatremia - current level 133, improved from 130, continue with IV Lasix, will recheck in the morning Acute toxic encephalopathy related to sepsis, unsure what patient's baseline is, continue with IV antibiotics Sinus tachycardia, improving Leukocytosis, related to sepsis, cellulitis, improved 10.4. Continue with IV antibiotics Thrombocytopenia, continue to monitor Elevated troponin secondary to acute on chronic congestive heart failure, continue IV Lasix, unable to rule out ACS at this time, cardiology consultation GI prophylaxis - IV Protonix DVT prophylaxis - Deferred due to an acute anemia, status post PRBC CODE STATUS - NO CODE without mechanical ventilation Plan is for patient to have a left-sided thoracentesis today with pulmonary services, pending cardiology input. Awaiting discussion with family regarding possible comfort care measures for this patient. Per telephonic nurse case manager, patient has not seen a physician in 8-10 years, does not have a PCP, and does not take any current home medications. We'll recheck labs in the morning, continue IV antibiotics. Blood cultures are pending. Urinalysis with reflex to culture is still pending, has not been collected. Past Medical History Past Medical History: No Reported History Past Surgical History: No Surgical Hx Reported, Unable to Obtain Smoking Status: Never smoker Past Alcohol Use History: None Reported Past Drug Use History: None Reported Medications and Allergies Home Medications Medication Instructions Recorded Confirmed Type Docusate [Colace] 100 mg PO DAILY PRN 12/11/20 12/11/20 History Ibuprofen [Motrin Ib] 200 mg PO Q8H PRN 12/11/20 12/11/20 History Allergies Allergy/AdvReac Type Severity Reaction Status Date / Time No Known Allergies Allergy Verified 12/11/20 21:51 Physical Exam Vitals: Vital Signs Temp Pulse Resp BP Pulse Ox 12/12/20 09:27 99.0 F 90 20 108/66 100 12/12/20 07:40 98.4 F 92 20 111/79 98 12/12/20 06:36 92 18 107/61 100 12/12/20 02:37 102 H 26 H 110/83 100 12/12/20 01:42 101.3 F H 107 H 26 H 113/65 98 12/11/20 23:21 102 H 20 100 12/11/20 22:15 88 20 116/80 94 L 12/11/20 21:03 20 12/11/20 20:35 98.3 F 82 20 110/55 92 L Intake and Output 12/11/20 12/12/20 12/12/20 22:59 06:59 14:59 Other: Weight 81.647 kg Results CBC & Chem 7: 12/12/20 05:00 12/12/20 05:00 Labs: Abnormal Lab Results - Last 24 Hours (Table) 12/11/20 12/11/20 12/11/20 Range/Units 21:32 21:32 21:32 WBC 13.1 H (3.8-10.6) k/uL RBC 2.52 L (4.30-5.90) m/uL Hgb 7.5 L (13.0-17.5) gm/dL Hct 23.9 L (39.0-53.0) % MCHC (31.0-37.0) g/dL RDW 21.7 H (11.5-15.5) % Plt Count 62 L (150-450) k/uL Blast Cells % 4 H* % Monocytes # (Manual) 4.59 H (0-1.0) k/uL Metamyelocytes # (Man) 0.92 H (0) k/uL Myelocytes # (Manual) 0.13 H (0) k/uL Promyelocytes # (Man) 0.66 H (0) k/uL Blast Cells # (Man) 0.52 H (0) k/uL Nucleated RBCs 30 H (0-0) /100 WBC PT 14.5 H (9.0-12.0) sec INR 1.4 H (<1.2) Sodium 130 L (137-145) mmol/L Potassium 5.2 H (3.5-5.1) mmol/L Carbon Dioxide 15 L (22-30) mmol/L BUN (9-20) mg/dL Glucose 160 H (74-99) mg/dL Plasma Lactic Acid Shamir (0.7-2.0) mmol/L Calcium 8.1 L (8.4-10.2) mg/dL Total Bilirubin 2.0 H (0.2-1.3) mg/dL AST 64 H (17-59) U/L Troponin I (0.000-0.034) ng/mL Total Protein 5.9 L (6.3-8.2) g/dL Albumin 2.8 L (3.5-5.0) g/dL 12/11/20 12/11/20 12/12/20 Range/Units 21:32 21:32 01:24 WBC (3.8-10.6) k/uL RBC (4.30-5.90) m/uL Hgb (13.0-17.5) gm/dL Hct (39.0-53.0) % MCHC (31.0-37.0) g/dL RDW (11.5-15.5) % Plt Count (150-450) k/uL Blast Cells % % Monocytes # (Manual) (0-1.0) k/uL Metamyelocytes # (Man) (0) k/uL Myelocytes # (Manual) (0) k/uL Promyelocytes # (Man) (0) k/uL Blast Cells # (Man) (0) k/uL Nucleated RBCs (0-0) /100 WBC PT (9.0-12.0) sec INR (<1.2) Sodium (137-145) mmol/L Potassium (3.5-5.1) mmol/L Carbon Dioxide (22-30) mmol/L BUN (9-20) mg/dL Glucose (74-99) mg/dL Plasma Lactic Acid Shamir 2.8 H* 4.0 H* (0.7-2.0) mmol/L Calcium (8.4-10.2) mg/dL Total Bilirubin (0.2-1.3) mg/dL AST (17-59) U/L Troponin I 0.420 H* (0.000-0.034) ng/mL Total Protein (6.3-8.2) g/dL Albumin (3.5-5.0) g/dL 12/12/20 12/12/20 12/12/20 Range/Units 05:00 05:00 05:00 WBC (3.8-10.6) k/uL RBC 2.56 L (4.30-5.90) m/uL Hgb 7.4 L (13.0-17.5) gm/dL Hct 24.8 L (39.0-53.0) % MCHC 29.7 L (31.0-37.0) g/dL RDW 21.5 H (11.5-15.5) % Plt Count 73 L (150-450) k/uL Blast Cells % 6 H* % Monocytes # (Manual) 2.81 H (0-1.0) k/uL Metamyelocytes # (Man) 0.62 H (0) k/uL Myelocytes # (Manual) 0.52 H (0) k/uL Promyelocytes # (Man) 0.42 H (0) k/uL Blast Cells # (Man) 0.62 H (0) k/uL Nucleated RBCs 35 H (0-0) /100 WBC PT (9.0-12.0) sec INR (<1.2) Sodium 133 L (137-145) mmol/L Potassium (3.5-5.1) mmol/L Carbon Dioxide 19 L (22-30) mmol/L BUN 22 H (9-20) mg/dL Glucose 155 H (74-99) mg/dL Plasma Lactic Acid Shamir (0.7-2.0) mmol/L Calcium 8.2 L (8.4-10.2) mg/dL Total Bilirubin (0.2-1.3) mg/dL AST (17-59) U/L Troponin I 0.595 H* (0.000-0.034) ng/mL Total Protein (6.3-8.2) g/dL Albumin (3.5-5.0) g/dL 12/12/20 Range/Units 08:19 WBC (3.8-10.6) k/uL RBC (4.30-5.90) m/uL Hgb (13.0-17.5) gm/dL Hct (39.0-53.0) % MCHC (31.0-37.0) g/dL RDW (11.5-15.5) % Plt Count (150-450) k/uL Blast Cells % % Monocytes # (Manual) (0-1.0) k/uL Metamyelocytes # (Man) (0) k/uL Myelocytes # (Manual) (0) k/uL Promyelocytes # (Man) (0) k/uL Blast Cells # (Man) (0) k/uL Nucleated RBCs (0-0) /100 WBC PT (9.0-12.0) sec INR (<1.2) Sodium (137-145) mmol/L Potassium (3.5-5.1) mmol/L Carbon Dioxide (22-30) mmol/L BUN (9-20) mg/dL Glucose (74-99) mg/dL Plasma Lactic Acid Shamir (0.7-2.0) mmol/L Calcium (8.4-10.2) mg/dL Total Bilirubin (0.2-1.3) mg/dL AST (17-59) U/L Troponin I 0.587 H* (0.000-0.034) ng/mL Total Protein (6.3-8.2) g/dL Albumin (3.5-5.0) g/dL
[2020-12-12 16:30] LABS: Appearance,BF Bloody; Color,BF Red; Nucleated Cells, Body Fluid 1250 /uL; RBC, Body Fluid 574500 /uL
[2020-12-12 16:31] LABS: Mononuclear WBC,Body Fluid 90 %; Polynuclear WBC,Body Fluid 10 %; Total Cells Counted,Body Fluid 100
[2020-12-12] MEDS: PIPERACILLIN-TAZOBACTAM 3.375 GM in SODIUM CHLORIDE 0.9% 100 ML IVPB SCH ×2 (17:18→22:22)
[2020-12-12] MEDS: MORPHINE SULFATE 2 MG/ML SYRINGE IVP PRN (17:19)
[2020-12-12 17:22] LABS: Appearance,Urine Cloudy (Clear); Bilirubin,Urine Negative (Negative); Blood,Urine Negative (Negative); Color,Urine Yellow; Glucose,Urine (UA) Negative (Negative); Hyaline Casts,Urine 14 /lpf (0-2); Ketones,Urine Negative (Negative); Leukocyte Esterase,Urine Negative (Negative); Mucus,Urine Rare /hpf; Nitrite,Urine Negative (Negative); Protein,Urine 1+ (Negative); RBC,Urine 1 /hpf (0-5); Specific Gravity,Urine 1.027 (1.001-1.035); Squamous Epithelial Cell,Urine <1 /hpf (0-4); Urobilinogen,Urine <2.0 mg/dL (<2.0); WBC,Urine 2 /hpf (0-5)
[2020-12-13 01:28] LABS: Glucose, BF Source Pleural Fluid; Glucose, Body Fluid 115 mg/dL; LDH, Body Fluid Source Pleural Fluid
[2020-12-13] MEDS: VANCOMYCIN 1,500 MG in SODIUM CHLORIDE 0.9% 250 ML IVPB SCH ×2 (04:04→20:12)
[2020-12-13 07:49] LABS: Anisocytosis Moderate; Hypochromasia Marked; MCH 28.7 pg (25.0-35.0); MCHC 29.7 g/dL (31.0-37.0); MCV 96.8 fL (80.0-100.0); Macrocytosis Slight; Mean Platelet Volume 13.3; Poikilocytosis Marked; RBC 2.79 m/uL (4.30-5.90); RDW 20.9 % (11.5-15.5)
[2020-12-13 07:50] LABS: Platelet Count 77 k/uL (150-450)
[2020-12-13] MEDS: FUROSEMIDE 10 MG/ML 4 ML VIAL IV SCH (07:56)
[2020-12-13] MEDS: PIPERACILLIN-TAZOBACTAM 3.375 GM in SODIUM CHLORIDE 0.9% 100 ML IVPB SCH ×2 (07:56→16:04)
[2020-12-13] MEDS: PANTOPRAZOLE 40 MG/10 ML VIAL IVP SCH (07:56)
--- NOTE | 2020-12-13 07:56 | XR ---
EXAMINATION TYPE: XR chest 1V portable DATE OF EXAM: 12/13/2020 COMPARISON: 12/12/2020 INDICATION: Follow-up left thoracentesis, pneumothorax TECHNIQUE: Single frontal view of the chest is obtained. FINDINGS: The heart size is normal. The pulmonary vasculature is normal. There is increasing consolidation at the left base. Correlate pneumonia. Some mild subsegmental atele ctasis may be at the right base. Previous left apical pneumothorax identified at this time. 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 IMPRESSION: 1. Increasing left lower lobe consolidation with air bronchograms. 2. Subsegmental atelectasis right base. 3. Resolution prior left apical pneumothorax
[2020-12-13 07:57] LABS: Calcium 8.2 mg/dL (8.4-10.2); Potassium 4.1 mmol/L (3.5-5.1)
[2020-12-13] MEDS: MORPHINE SULFATE 2 MG/ML SYRINGE IVP PRN (08:17)
[2020-12-13] MEDS: ACETAMINOPHEN TAB 325 MG TAB PO PRN (08:18)
[2020-12-13] MEDS ORDERED: DILTIAZEM DRIP BOLUS FROM BAG 1 MG SOLN IV ONE ×2 (08:43→17:04)
[2020-12-13] MEDS: METOPROLOL SUCCINATE (ER) 25 MG TAB.ER.24H PO SCH (08:55)
[2020-12-13] MEDS ORDERED: MORPHINE SULFATE 2 MG/ML SYRINGE IVP PRN (09:15)
[2020-12-13] MEDS ORDERED: DILTIAZEM 125 MG in SODIUM CHLORIDE 0.9% 100 ML IV SCH (09:15)
[2020-12-13 09:19] LABS: Band Neutrophils % 4 %; Blast Cells # (M) 0.35 k/uL (0); Lymphocytes # (M) 3.13 k/uL (1.0-4.8); Metamyelocytes # (M) 0.26 k/uL (0); Metamyelocytes % 3 %; Monocytes # (M) 1.04 k/uL (0-1.0); Myelocytes % 8 %; Neutrophils % (M) 30 %; Nucleated Red Blood Cells 26 /100 WBC (0-0); Promyelocytes # (M) 0.26 k/uL (0); Promyelocytes % 3 %; Total Cells Counted 200; WBC 8.7 k/uL (3.8-10.6)
[2020-12-13 09:20] LABS: Polychromasia Present
[2020-12-13 09:22] LABS: Tear Drop Cells Present
--- NOTE | 2020-12-13 11:17 | P.PN ---
Subjective HISTORY OF PRESENTING ILLNESS This is a pleasant 89-year-old male with no significant past medical history. Unknown if patient follows with a regulatory analyst. We have been asked to see in consultation for elevated troponin. Patient is seen and examined in the emergency department. He was a transfer from [facility]. He had presented there with generalized weakness and pain in his left leg and had multiple falls at home. Patient had been transferred for both cardiology and pulmonology consultation. Patient seen and examined at bedside he is confused, He is alert, oriented to self. He is unsure what brought him to the hospital. He denies any pain, chest pain, palpitations, abdominal pain, fever, chills, nausea, vomiting. He is unsure how long his left arm, left leg, and left side have been bruised. He denies history of bleeding problems, coronary artery disease, UT, diabetes, cancer. Echocardiogram obtained which revealed ejection fraction of 4045 percent, mild aortic valve sclerosis, mild mitral regurgitati on, mild tricuspid regurgitation, large pleural effusion. Workup at [facility] included CT chest revealed large left pleural effusion, with atelectasis of the left lung. This was negative for pulmonary embolism according to the record Fecal occult blood test was negative Brain CT which is negative for intracranial hemorrhage. Ultrasound of the left upper extremity and bilateral lower extremities which were negative for DVT. Labs revealed- he had a significant anemia at 6.8, Lactate was 6.3, WBC 16.8, platelets 65, BUN 17, serum creatinine 0.8, sodium 134, potassium 4.5. elevated troponin at 0.47. He was given 1 g of ceftriaxone prior to transfer for left and right lower extremity cellulitis. He has recieved 1 unit of PRBC for anemia EKG sinus tachycardia, no significant ST-T wave abnormalities Chest xray Large left pleural effusion left sided consoidation, pulmonary congestion. Aneurysm of the aortic arch Laboratory reviewed, WBC 10.4, hemoglobin 10.4, platelets 73, sodium 133, potassium 4.5, BUN 22, serum creatinine 1.07, lactate 4.0, trace 3.04, 0.059 proBNP 15,400 12/13/2020 Patient seen and examined sitting up in bed. He is quite restless and uncomfortable. He is complaining of abdominal discomfort. He is mildly tachypnea, room air although maintaining oxygen saturations. He has been into atrial fibrillation with rapid ventricular rate. This is new for him. He underwent a thoracentesis yesterday with 1.8 L removed. Current blood pressure 138/72 heart rate 108 temperature of 100.4F. Laboratory data reviewed, WBC 8.4, hemoglobin 8, platelets 77, blast cells 4, sodium 135, potassium 4.1, creatinine 1.09. Currently maintained on IV antibiotics. PHYSICAL EXAMINATION CONSTITUTIONAL: Confused, restless HEENT: Head is normocephalic. Pupils are equal, round. No JVD. Bruising on right side of face CHEST EXAMINATION: Lungs are rhonci and diminished bilaterally to auscultation. HEART EXAMINATION: Irregular rate and rhythm. S1, S2 heard. Systolic murmur noted. No gallops or rub. EXTREMITIES: Decreased pulses in bilateral lower extremities. Moderate bilaterally lower extremity edema. Petechiae of the bilateral lower extremities, Dependent non-blanchable redness left lower extremity up to his knee, Dependent non-blanchable redness left upper extremity, ecchymosis left side of rib and abdomen. ASSESSMENT Acute Anemia s/p 1unit of PRBC Elevated troponin, not indicative of acute coronary syndrome Acute systolic heart failure Large Left pleural effusion Altered mental status Bicytopenia Lactic acidosis Blast cells positive of cbc - uknown if patient has a history of cancer Petechiae and dependent non-blanchable redness of left lower extremity, left upper extremity and left side of rib- possibly could be related to patient on floor for long periods of time if on left side. New onset paroxysmal atrial fibrillation with rapid ventricular rate. PLAN Initiate Cardizem infusion and Toprol 25 mg daily for rate control. Hold on anticoagulation given his current state of bicytopenia. Further recommendations based on clinical course Nurse Practitioner note has been reviewed, I agree with a documented findings and plan of care. Patient was seen and examined. Objective - Vital Signs Vital signs: Vital Signs Temp 100.4 F H 12/13/20 08:04 Pulse 108 H 12/13/20 08:04 Resp 20 12/13/20 08:04 BP 138/72 12/13/20 08:04 Pulse Ox 99 12/13/20 08:04 Intake & Output 12/12/20 12/13/20 12/13/20 18:59 06:59 18:59 Intake Total 0 100 0 Balance 0 100 0 Weight 81.647 kg 83 kg Intake: Intake, IV Titration 100 Amount Piperacillin-Tazobactam 3 100 .375 gm In Sodium Chloride 0.9% 100 ml @ 25 mls/hr IVPB Q8HR [facility] Rx# :[id number] Oral 0 0 Other: Voiding Method Diaper Diaper Diaper Incontinent Incontinent Incontinent # Voids 0 3 1 - Labs CBC & Chem 7: 12/13/20 06:58 12/13/20 06:58 Labs: Abnormal Lab Results - Last 24 Hours (Table) 12/11/20 12/11/20 12/12/20 Range/Units 21:32 21:32 05:00 RBC (4.30-5.90) m/uL Hgb (13.0-17.5) gm/dL Hct (39.0-53.0) % MCHC (31.0-37.0) g/dL RDW (11.5-15.5) % Plt Count (150-450) k/uL Blast Cells % % Monocytes # (Manual) (0-1.0) k/uL Metamyelocytes # (Man) (0) k/uL Myelocytes # (Manual) (0) k/uL Promyelocytes # (Man) (0) k/uL Blast Cells # (Man) (0) k/uL Nucleated RBCs (0-0) /100 WBC Pathologist Review See comment A Sodium (137-145) mmol/L Chloride (98-107) mmol/L Carbon Dioxide (22-30) mmol/L BUN (9-20) mg/dL Glucose (74-99) mg/dL Calcium (8.4-10.2) mg/dL Procalcitonin 48.65 H (0.02-0.09) ng/mL Urine Protein 1+ H (Negative) Hyaline Casts 14 H (0-2) /lpf Urine Mucus Rare H (None) /hpf 12/13/20 12/13/20 Range/Units 06:58 06:58 RBC 2.79 L (4.30-5.90) m/uL Hgb 8.0 L (13.0-17.5) gm/dL Hct 27.0 L (39.0-53.0) % MCHC 29.7 L (31.0-37.0) g/dL RDW 20.9 H (11.5-15.5) % Plt Count 77 L (150-450) k/uL Blast Cells % 4 H* % Monocytes # (Manual) 1.04 H (0-1.0) k/uL Metamyelocytes # (Man) 0.26 H (0) k/uL Myelocytes # (Manual) 0.70 H (0) k/uL Promyelocytes # (Man) 0.26 H (0) k/uL Blast Cells # (Man) 0.35 H (0) k/uL Nucleated RBCs 26 H (0-0) /100 WBC Pathologist Review Sodium 135 L (137-145) mmol/L Chloride 109 H (98-107) mmol/L Carbon Dioxide 18 L (22-30) mmol/L BUN 28 H (9-20) mg/dL Glucose 129 H (74-99) mg/dL Calcium 8.2 L (8.4-10.2) mg/dL Procalcitonin (0.02-0.09) ng/mL Urine Protein (Negative) Hyaline Casts (0-2) /lpf Urine Mucus (None) /hpf Microbiology - Last 24 Hours (Table) 12/12/20 12:26 Gram Stain - Preliminary Pleural Fluid Body Fluid Culture - Preliminary 12/11/20 21:32 Blood Culture - Preliminary Blood No Growth after 24 hours 12/11/20 21:32 Blood Culture - Preliminary Blood No Growth after 24 hours 12/12/20 12:26 Fungal Culture - Preliminary Pleural Fluid 12/12/20 12:26 Acid Fast Bacilli Culture - Preliminary Pleural Fluid
--- NOTE | 2020-12-13 13:10 | P.PN ---
Subjective Progress Note Date: 12/13/20 89-year-old male patient who presented as a transfer from [facility] in [facility]. apparently he was found on the floor after he had fallen, and it was unknown how much time he had spent on the floor. he reportedly was found by one of his family members. He lives alone. He's had multiple falls at home. he has multiple areas of bruising on his body , upper and lower extremities and torso. He is generally weak, and he is having increased pain and some pain in his left leg which is particularly more bruised and swollen. he reports some dyspnea, but no chest discomfort. he was found to be anemic and had an elevated troponin. chest x-ray on admission showed a large left-sided pulmonary consolidation and pleural fluid. There was pulmonary congestion, there was a tracheal shift to the right. admission labs showed hemoglobin is 7.5, his platelet count was 62, white blood cell count was 13.1, his last cells were 4, INR is 1.4, sodium was 130, potassium is 5.2, chloride is 106, CO2 is 15, BUN was 20, creatinine 0.85, plasma lactic acid was 2.8, calcium was 8.1, total bilirubin was 2.0, AST was 64, ALT was 20, alkaline phosphatase was 61, troponin was 0.4-0, proBNP was 15,400, he was tested for COVID-19 and he was found to be negative. He is a poor historian, however he is awake and alert, he thinks she is at home, he is able to answer simple questions. is febrile with a temp of 101.3 Fahrenheit rectal, slightly tachycardic, in sinus mechanism, he is currently on 6 L of oxygen his pulse ox is 98%, blood pressure is 113/65. he was placed on broad-spectrum antibiotics in the form of Rocephin, and vancomycin was also added. he was started on IV Lasix at 40 mg every 12 hours. patient is unable to tell us about his medical history, but from reviewing his home medications he only takes Motrin and Colace. echocardiogram was completed showing EF between 40-45% , no evidence of aortic regurgitation, mild MR, mild TR, large pleural effusion. ultrasound of the chest has been completed showing 10.9 cm pleural fluid pocket on the left. After contacting h is family ( his [id number] and his son who are currently driving under way to the hospital) consent was obtained for left-sided thoracentesis. Patient's CODE STATUS is DO NOT RESUSCITATE, and the [id number] had stated that hospice and comfort care will possibly be initiated in view of patient's general decline recently. after positioning the patient, and also explained the procedure to him and obtaining verbal consent from the patient himself , 1.8 L of grossly bloody fluid was removed from the left pleural space uneventfully. patient tolerated procedure very well, he is breathing easier, had some slight cough after the procedure, but no significant discomfort, he is setting 100% on 4 L, follow-up chest x-ray showing mild interstitial density, and significant interval improvement of the patient's previous left pleural effusion, there is a small left pleural effusion still remains, mild patchy basilar densities. And possibility of a trace left apical 2.5 mm pneumothorax was a difficult to exclude. And follow-up was recommended. On 12/13/2020 patient seen in follow-up on selective care unit. Patient is resting in bed, however he states that he is hurting all over, he is grimacing, he is moaning, his morphine was increased today for generalized pain. He is currently on 2 L of oxygen, pulse ox is 98%, breathing fairly comfortably, still having some low-grade fevers, with a T-max of 100.2F, he is status post left- sided thoracentesis yesterday with removal of 1.8 L of bloody effusion and the pleural fluid was sent for analysis. Cytology is still pending today, pleural fluid analysis reveals exudative fluid with protein of 3.2 g, and LDH of 395, red blood cells were 574,500. Pleural fluid cultures are pending, patient remains on empiric antibiotics with Zosyn and vancomycin, his labs have been reviewed, his white blood cell count is 8.7, hemoglobin is 8.0, platelet count is 77, his differential was significantly abnormal, with blast cells of 4, sod ium of 135, potassium is 4.1, chloride is 109, CO2 is 18, B1 is 20, creatinine is 1.09. His chest x-ray today shows increasing left lower lobe consolidation with air bronchograms, and subsegmental atelectasis at the right base, and resolution of the prior left apical pneumothorax. Cardiology is also following, echocardiogram has been reviewed, showing mild to moderate impairment of the left ventricular systolic function with an EF of 40-45%. Patient still remains in atrial fibrillation, still slightly tachycardic, with a rate of 106 BPM, and she remains on Cardizem infusion at 15 mg per hour. Objective - Vital Signs Vital signs: Vital Signs Temp 98.9 F 12/13/20 12:20 Pulse 120 H 12/13/20 12:20 Resp 20 12/13/20 12:20 BP 80/49 12/13/20 12:20 Pulse Ox 98 12/13/20 12:20 Intake & Output 12/12/20 12/13/20 12/13/20 18:59 06:59 18:59 Intake Total 0 100 0 Balance 0 100 0 Weight 81.647 kg 83 kg Intake: Intake, IV Titration 100 Amount Piperacillin-Tazobactam 3 100 .375 gm In Sodium Chloride 0.9% 100 ml @ 25 mls/hr IVPB Q8HR [facility] Rx# :[id number] Oral 0 0 Other: Voiding Method Diaper Diaper Diaper Incontinent Incontinent Incontinent # Voids 0 3 1 - Exam GENERAL EXAM: Lethargic, in moderate amount of distress from generalized discomfort, moaning 89-year-old white male, on 2 L of oxygen, the pulse ox of 90% and able to verbalize his symptoms, patient has multiple areas of bruises on his face, upper and lower extremities, with significantly more bruising and swelling in the left leg, left arm, or areas of bruising on his back, chest, abdomen. he has a history of frequent falls at home HEAD: Normocephalic/atraumatic. EYES: Normal reaction of pupils, equal size. Conjunctiva pink, sclera white. NOSE: Clear with pink turbinates. THROAT: No erythema or exudates. NECK: No masses, no JVD, no thyroid enlargement, no adenopathy. CHEST: No chest wall deformity. Symmetrical expansion. LUNGS: Equal air entry with management of sounds over mid and lower lung jacobo of the left lung CVS: Regular rate and rhythm, normal S1 and S2, no gallops, no murmurs, no rubs ABDOMEN: Soft, nontender. No hepatosplenomegaly, normal bowel sounds, no guarding or rigidity. EXTREMITIES: No clubbing, nonpitting 1+edema bilateral lower extremities, no cyanosis, 2+ pulses and upper and lower extremities. MUSCULOSKELETAL: Muscle strength and tone normal.patient has stiffness, and weak ness SPINE: No scoliosis or deformity SKIN: No rashes CENTRAL NERVOUS SYSTEM: Alert and oriented -1. No focal deficits, tone is normal in all 4 extremities. PSYCHIATRIC: Alert and oriented -1. Appropriate affect. Intact judgment and insight. - Labs CBC & Chem 7: 12/13/20 06:58 12/13/20 06:58 Labs: Abnormal Lab Results - Last 24 Hours (Table) 12/11/20 12/11/20 12/12/20 Range/Units 21:32 21:32 05:00 RBC (4.30-5.90) m/uL Hgb (13.0-17.5) gm/dL Hct (39.0-53.0) % MCHC (31.0-37.0) g/dL RDW (11.5-15.5) % Plt Count (150-450) k/uL Blast Cells % % Monocytes # (Manual) (0-1.0) k/uL Metamyelocytes # (Man) (0) k/uL Myelocytes # (Manual) (0) k/uL Promyelocytes # (Man) (0) k/uL Blast Cells # (Man) (0) k/uL Nucleated RBCs (0-0) /100 WBC Pathologist Review See comment A Sodium (137-145) mmol/L Chloride (98-107) mmol/L Carbon Dioxide (22-30) mmol/L BUN (9-20) mg/dL Glucose (74-99) mg/dL Calcium (8.4-10.2) mg/dL Procalcitonin 48.65 H (0.02-0.09) ng/mL Urine Protein 1+ H (Negative) Hyaline Casts 14 H (0-2) /lpf Urine Mucus Rare H (None) /hpf 12/13/20 12/13/20 Range/Units 06:58 06:58 RBC 2.79 L (4.30-5.90) m/uL Hgb 8.0 L (13.0-17.5) gm/dL Hct 27.0 L (39.0-53.0) % MCHC 29.7 L (31.0-37.0) g/dL RDW 20.9 H (11.5-15.5) % Plt Count 77 L (150-450) k/uL Blast Cells % 4 H* % Monocytes # (Manual) 1.04 H (0-1.0) k/uL Metamyelocytes # (Man) 0.26 H (0) k/uL Myelocytes # (Manual) 0.70 H (0) k/uL Promyelocytes # (Man) 0.26 H (0) k/uL Blast Cells # (Man) 0.35 H (0) k/uL Nucleated RBCs 26 H (0-0) /100 WBC Pathologist Review Sodium 135 L (137-145) mmol/L Chloride 109 H (98-107) mmol/L Carbon Dioxide 18 L (22-30) mmol/L BUN 28 H (9-20) mg/dL Glucose 129 H (74-99) mg/dL Calcium 8.2 L (8.4-10.2) mg/dL Procalcitonin (0.02-0.09) ng/mL Urine Protein (Negative) Hyaline Casts (0-2) /lpf Urine Mucus (None) /hpf Microbiology - Last 24 Hours (Table) 12/12/20 12:26 Gram Stain - Preliminary Pleural Fluid Body Fluid Culture - Preliminary 12/11/20 21:32 Blood Culture - Preliminary Blood No Growth after 24 hours 12/11/20 21:32 Blood Culture - Preliminary Blood No Growth after 24 hours 12/12/20 12:26 Fungal Culture - Preliminary Pleural Fluid 12/12/20 12:26 Acid Fast Bacilli Culture - Preliminary Pleural Fluid Assessment and Plan Plan: assessment: #1. Acute hypoxic respiratory failure related to large left-sided pleural effusion, possibility of acute CHF exacerbation and underlying pneumonia. COVID- 19 PCR was negative #2. Large left-sided pleural effusion, status post left-sided thoracentesis wou ld removal of 1.8 L of grossly bloody effusion on 12/12/[address] Franco, and the pleural fluid was sent for analysis. This could be related to traumatic hemothorax related to frequent falls, and possibility of malignancy is also considered. Pleural fluid was sent for cytology #3. Anemia, likely related to acute blood loss, large hemothorax, possible traumatic. patient presented with a hemoglobin of 7.5. #4. Abnormal blast count, oncology consulted #5. Tachycardia, likely reactive possible sinus mechanism, rule out possibility of atrial fibrillation, being followed by cardiology, continues on Cardizem #6. Possible underlying pneumonia, patient is currently on a combination of Rocephin, vancomycin was added #7. Thrombocytopenia, multifactorial, possibly related to underlying sepsis, and trauma #8. Lactic acidosis, rule out possibility of sepsis #9. Mild troponin elevation, cardiology is following, rule out possibility of non-ST limited myocardial infarction #10. Acute exacerbation of systolic CHF #11. Multiple falls at home, and patient was reportedly found down by his family, and it is unknown how much time he had spent on the ground #12. Multiple areas of ecchymosis all over the body, including upper and lower extremities, back, torso, and face related to falls #13. Overall generally declining medical state according to the patient's family, however patient lives alone according to the family reports. Family is currently considering palliative care hospice referral Plan: Follow-up chest x-ray tomorrow Continue empiric antibiotics Peripheral cytology and cultures are pending Procalcitonin significantly elevated suggesting underlying infection possibly of pneumonia although the pleural fluid was not consistent with parapneumonic pleural effusion and more consistent with traumatic hemomothorax Blood cultures are pending Pain control medications Continue supportive care The family is contemplating comfort care Current CODE STATUS is DO NOT RESUSCITATE We'll continue to follow I performed a history & physical examination of the patient and discussed their management with my nurse practitioner, Kayleigh Dobbs. I reviewed the nurse practitioner's note and agree with the documented findings and plan of care. Lung sounds are positive for diminished breath sounds throughout the lung jacobo. The findings and the impression was discussed with the patient. I attest to the documentation by the nurse practitioner. Time with Patient: Less than 30
[2020-12-13] MEDS ORDERED: traMADol 50 MG TAB PO PRN (13:42)
--- NOTE | 2020-12-13 13:51 | P.PN ---
Subjective Progress Note Date: 12/13/20 12/12/2020 This is a 89-year-old male, patient is alert and oriented times person. Patient was transferred to our facility from [facility], for pulmonary and cardiology services. Per paperwork, patient does not take any home medications, there are no medical diagnoses. Patient is a very poor historian, he states that he does live by himself, he states that he does not see a physician. Patient is able to tell me that he has a son that lives close by, and he has a daughter that lives in [place]. Patient denies any chest pain, shortness of breath, cough. Patient denies any generalized pain. Patient states that the cellulitis to his left lower leg has presented like that for quite a while, he does admit to frequent falls at home. Patient had an extensive workup at [facility], bilateral duplex Doppler was negative for DVT, as well as the left upper extremity was negative for DVT. In addition, patient had a brain CT that was negative for intracranial hemorrhage, CT of the chest that was negative for pulmonary embolism via medical records from [facility]. Patient was found to have a hemoglobin of 6.8, negative Hemoccult, did receive 1 unit of PRBCs. His hemoglobin today is 7.4. Patient was found to have left- sided pulmonary consolidation and pleural fluid, and congestive heart failure on a chest x-ray. It is unsure whether this is acute or chronic. Patient was evaluated by pulmonary services today who ordered a chest ultrasound, plan is for patient to undergo a left chest thoracentesis with Dr. Wilcox today. Patient had an echocardiogram done that revealed an ejection fraction of 40-45%, mild mitral regurgitation, mild tricuspid regurgitation, large pleural effusion. Cardiac enzymes have remained positive 3, 0.420, 0.595, 0.587. Lactic acid on admission was 2.8, patient was treated with a dose of IV Rocephin, IV Vanco. Repeat lactic acid was 4, at this time patient was monitored due to findings of a possible acute congestive heart failure, patient was not fluid resuscitated. Repeat lactic acid this morning was 1.8. Patient is continued on IV Lasix 40 mg every 12 hours. Per family, when patient was brought into the ER, expressed s ome desire to discuss comfort measures for this patient. Family will be present at the bedside later today. Patient is a DO NOT RESUSCITATE. 12/13/2020 Patient is evaluated today sitting on the bedside with physical therapy. Patient is tachypneic, states that he has been generalized pain everywhere. Patient is still alert to person. Pulse oximetry obtained which revealed a pulse ox in the 70s on room air after working with physical therapy. Patient was assisted back into the bed, and oxygen saturation came up to 100% on 2-3 L nasal cannula. Patient states that he is having quite a bit of pain in that left foot and ankle, there appears to be some mild edema, to the left ankle. Patient has bruising to his left thorax, as well as bruising to his coccyx. Suspect patient has been falling at home, x-rays will be obtained of his left foot and ankle. Patient went into A. fib RVR, was started on IV Cardizem, oral Toprol from cardiology. Patient is on IV antibiotics. Morphine has been increased. Pathology is still pending from left thoracentesis. Patient and 1.8 L removed yesterday from his left lung, that was bloody in appearance. Patient's hemoglobin is stable today at 8, platelet count 77. Patient's blast cells remain critical. Oncology workup in progress. Patient is febrile 100.4 T-max, heart rate 108, blood pressure 138/72, 99% 2L nc. REVIEW OF SYSTEMS: CONSTITUTIONAL: Reports fever, no malaise, no fatigue. HEENT: No recent visual problems or hearing problems. Denied any sore throat. CARDIOVASCULAR: No chest pain, orthopnea, PND, no palpitations, no syncope. PULMONARY: No shortness of breath, no cough, no hemoptysis. GASTROINTESTINAL: No diarrhea, no nausea, no vomiting, no abdominal pain. NEUROLOGICAL: No headaches, no weakness, no numbness. HEMATOLOGICAL: Denies any bleeding or petechiae. GENITOURINARY: Denies any burning micturition, frequency, or urgency. MUSCULOSKELETAL/RHEUMATOLOGICAL: Denies any joint pain, swelling, or any muscle pain. ENDOCRINE: Denies any polyuria or polydipsia. The rest of the 14-point review of systems is negative. Patient is a poor historian, denied all complaints. PHYSICAL EXAMINATION: GENERAL: The patient is alert and oriented x1, patient does have some mild expiratory wheeze, audible. Well developed. HEENT: Pupils are round and equally reacting to light. EOMI. No scleral icterus. No conjunctival pallor. Normocephalic, atraumatic. No pharyngeal erythema. No thyromegaly. CARDIOVASCULAR: S1 and S2 present. No murmurs, rubs, or gallops. PULMONARY: Diminished lung sounds, with expiratory wheeze. ABDOMEN: Soft, nontender, nondistended, normoactive bowel sounds. No palpable organomegaly. MUSCULOSKELETAL: No joint swelling or deformity. EXTREMITIES: No cyanosis, clubbing. +1 mild pitting edema bilateral NEUROLOGICAL: Gross neurological examination did not reveal any focal deficits. SKIN: Some scattered ecchymosis, left lower extremity from knee to ankle displays a purplish red color. There is not a break in the skin. Assessment and Plan: Assessment: Acute hypoxic respiratory failure secondary to CHF, on 2 L NC, desats to the 70's with activity on RA, on IV Lasix Sepsis due to left lower extremity chronic cellulitis and possible pneumonia, pending pleural fluid cultures, on IV antibiotics, lactic acid 1.8, consultation to ID Lactic acidosis, secondary to left lower extremity cellulitis, sepsis, improving with antibiotics. Currently level is 1.8. Blood cultures pending. Congestive heart failure, acute on chronic, systolic, ejection fraction 40-45% chest x-ray reveals congestive heart failure. BNP - 15,400. Patient will continue on IV Lasix 40 mg every 12. Pleural effusion, plan is for patient to undergo a left thoracentesis today with pulmonary services. Pending pathology Acute anemia, no past medical history available, hemoglobin 7.4 status post 1 unit PRBC - hgb 8 today Critical blast cell6, oncology consultation Left lower extremity cellulitis, appears chronic in nature, patient denies recei ving medical attention for this. Continue with IV antibiotics. Hypervolemic hyponatremia - current level 135, improved from 130, continue with IV Lasix Acute toxic encephalopathy related to sepsis, unsure what patient's baseline is, continue with IV antibiotics Sinus tachycardia, improving Leukocytosis, related to sepsis, cellulitis, improved 8.7. Continue with IV antibiotics Bicytopenia - plt 77 Elevated troponin secondary to acute on chronic congestive heart failure, continue IV Lasix, unable to rule out ACS at this time, cardiology consultation GI prophylaxis - IV Protonix DVT prophylaxis - Deferred due to bicytopenia, status post PRBC CODE STATUS - NO CODE without mechanical ventilation Pathology is still pending from left thoracentesis. Patient and 1.8 L of pleural fluid removed yesterday that appeared bloody. Pt is alert 1 today. Patient complained of some left ankle pain when being evaluated by PT, patient was unable to bear much weight, very weak. We'll obtain an x-ray of that ankle. Prognosis is guarded, patient is a DO NOT RESUSCITATE, per family law specialist had mentioned that they would like patient to the rehab facility before deciding about comfort care measures. Will discuss with family. Objective - Vital Signs Vital signs: Vital Signs Temp 100.4 F H 12/13/20 08:04 Pulse 108 H 12/13/20 08:04 Resp 20 12/13/20 08:04 BP 138/72 12/13/20 08:04 Pulse Ox 99 12/13/20 08:04 Intake & Output 12/12/20 12/13/20 12/13/20 18:59 06:59 18:59 Intake Total 0 100 0 Balance 0 100 0 Weight 81.647 kg 83 kg Intake: Intake, IV Titration 100 Amount Piperacillin-Tazobactam 3 100 .375 gm In Sodium Chloride 0.9% 100 ml @ 25 mls/hr IVPB Q8HR [facility] Rx# :[id number] Oral 0 0 Other: Voiding Method Diaper Diaper Diaper Incontinent Incontinent Incontinent # Voids 0 3 1 - Labs CBC & Chem 7: 12/13/20 06:58 12/13/20 06:58 Labs: Abnormal Lab Results - Last 24 Hours (Table) 12/11/20 12/11/20 12/12/20 Range/Units 21:32 21:32 05:00 RBC (4.30-5.90) m/uL Hgb (13.0-17.5) gm/dL Hct (39.0-53.0) % MCHC (31.0-37.0) g/dL RDW (11.5-15.5) % Plt Count (150-450) k/uL Blast Cells % % Monocytes # (Manual) (0-1.0) k/uL Metamyelocytes # (Man) (0) k/uL Myelocytes # (Manual) (0) k/uL Promyelocytes # (Man) (0) k/uL Blast Cells # (Man) (0) k/uL Nucleated RBCs (0-0) /100 WBC Pathologist Review See comment A Sodium (137-145) mmol/L Chloride (98-107) mmol/L Carbon Dioxide (22-30) mmol/L BUN (9-20) mg/dL Glucose (74-99) mg/dL Calcium (8.4-10.2) mg/dL Procalcitonin 48.65 H (0.02-0.09) ng/mL Urine Protein 1+ H (Negative) Hyaline Casts 14 H (0-2) /lpf Urine Mucus Rare H (None) /hpf 12/13/20 12/13/20 Range/Units 06:58 06:58 RBC 2.79 L (4.30-5.90) m/uL Hgb 8.0 L (13.0-17.5) gm/dL Hct 27.0 L (39.0-53.0) % MCHC 29.7 L (31.0-37.0) g/dL RDW 20.9 H (11.5-15.5) % Plt Count 77 L (150-450) k/uL Blast Cells % 4 H* % Monocytes # (Manual) 1.04 H (0-1.0) k/uL Metamyelocytes # (Man) 0.26 H (0) k/uL Myelocytes # (Manual) 0.70 H (0) k/uL Promyelocytes # (Man) 0.26 H (0) k/uL Blast Cells # (Man) 0.35 H (0) k/uL Nucleated RBCs 26 H (0-0) /100 WBC Pathologist Review Sodium 135 L (137-145) mmol/L Chloride 109 H (98-107) mmol/L Carbon Dioxide 18 L (22-30) mmol/L BUN 28 H (9-20) mg/dL Glucose 129 H (74-99) mg/dL Calcium 8.2 L (8.4-10.2) mg/dL Procalcitonin (0.02-0.09) ng/mL Urine Protein (Negative) Hyaline Casts (0-2) /lpf Urine Mucus (None) /hpf Microbiology - Last 24 Hours (Table) 12/12/20 12:26 Gram Stain - Preliminary Pleural Fluid Body Fluid Culture - Preliminary 12/11/20 21:32 Blood Culture - Preliminary Blood No Growth after 24 hours 12/11/20 21:32 Blood Culture - Preliminary Blood No Growth after 24 hours 12/12/20 12:26 Fungal Culture - Preliminary Pleural Fluid 12/12/20 12:26 Acid Fast Bacilli Culture - Preliminary Pleural Fluid
--- NOTE | 2020-12-13 14:41 | XR ---
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 This may be identification of an occult fracture more difficul t. Follow up exams can be performed 7-10 days from acute trauma for continued pain Plantar calcaneal heel spur is present. No acute fracture or dislocation is evident. Vascular calcifi cation is present. Joint spaces and mild diffuse narrowing. IMPRESSION: 1. Degenerative joint changes. No acute osseous abnormality is evident
--- NOTE | 2020-12-13 14:43 | XR ---
EXAMINATION TYPE: XR ankle complete LT DATE OF EXAM: 12/13/2020 COMPARISON: None HISTORY: Fall, pain TECHNIQUE: 3 views left elbow FINDINGS: There is some soft tissue swelling diffusely at the ankle. Structures appear osteopenic. Th is may make an occult fracture more difficult to visualize. Follow up exams can be performed 7-10 day s from acute trauma for continued pain No acute fracture or dislocation is evident. Ankle mortise is intact. Calcaneal heel spurs are presen t. IMPRESSION: 1. Mild diffuse soft tissue swelling at the ankle
[2020-12-13] MEDS: DILTIAZEM 125 MG in SODIUM CHLORIDE 0.9% 100 ML IV SCH (16:16)
--- NOTE | 2020-12-13 18:54 | P.CONS ---
History of Present Illness - Reason for Consult Consult date: 12/13/20 blast cells in the periphery Requesting physician: Lazara Manriquez - Chief Complaint transfer - History of Present Illness Mr. Stern is an 89-year-old male who we've been asked to see due to critical blasts found in the peripheral blood stream. Unfortunately, patient is not able to give us much information. He was a transfer and from chart review he was brought in to the hospital because of progressive weakness, pain in the left leg and falls. Patient is not able to verify any of this information. His workup included bilateral lower extremity Doppler, negative for DVT, the left upper extremity doppler was negative for DVT, CT showed no PE, brain CT without contrast was negative. Patient was found to have a large pleural effusion, status post a thoracentesis with 1.8 L of bloody fluid removed, cytology pending. His troponins were elevated on admission, his temp was 101.3. Hemoglobin 8, platelets 77,000, BUN/creatinine 28/1.09. Review of Systems ROS unobtainable: due to mental status Past Medical History Past Medical History: No Reported History History of Any Multi-Drug Resistant Organisms: None Reported Past Surgical History: No Surgical Hx Reported, Unable to Obtain Past Anesthesia/Blood Transfusion Reactions: No Reported Reaction Past Psychological History: Unable to Obtain Smoking Status: Never smoker Past Alcohol Use History: Unable to Obtain Past Drug Use History: Unable to Obtain - Past Family History Father Family Medical History: Unable to Obtain Medications and Allergies Home Medications Medication Instructions Recorded Confirmed Type Docusate [Colace] 100 mg PO DAILY PRN 12/11/20 12/11/20 History Ibuprofen [Motrin Ib] 200 mg PO Q8H PRN 12/11/20 12/11/20 History Allergies Allergy/AdvReac Type Severity Reaction Status Date / Time No Known Allergies Allergy Verified 12/11/20 21:51 Physical Exam Vitals: Vital Signs Temp Pulse Pulse Resp BP Pulse Ox 12/13/20 15:46 99 F 110 H 25 H 97/65 99 12/13/20 15:39 97 12/13/20 13:38 93/53 12/13/20 12:20 98.9 F 120 H 20 80/49 98 12/13/20 08:04 100.4 F H 108 H 20 138/72 99 12/13/20 04:11 99.2 F 82 20 121/60 96 12/13/20 02:00 84 18 12/12/20 22:25 97.2 F L 84 116/70 95 12/12/20 20:00 98.2 F 88 18 117/68 96 Intake and Output 12/13/20 12/13/20 12/13/20 06:59 14:59 22:59 Intake Total 50 50 Output Total 750 Balance 50 -700 Intake: Intake, IV Titration 50 0 Amount Diltiazem 125 mg In 50 0 Sodium Chloride 0.9% 100 ml @ 15 MG/HR 15 mls/hr IV .[id number] [facility] Rx#: [id number] Oral 0 50 Output: Urine 750 Other: Voiding Method Diaper Diaper Incontinent Incontinent # Voids 3 1 Weight 83 kg - Constitutional General appearance: average body habitus, cooperative, no acute distress - EENT Eyes: anicteric sclerae, EOMI ENT: hearing grossly normal - Neck Neck: no lymphadenopathy - Respiratory Respiratory: bilateral: CTA - Cardiovascular Heart sounds: normal: S1, S2 leg Peripheral Edema: bilateral: None - Gastrointestinal General gastrointestinal: no absent bowel sounds, no decreased bowel sounds, no distended, no hepatomegaly, no hyperactive bowel sounds, normal bowel sounds, no organomegaly, no rigid, no scaphoid, soft, no splenomegaly, no tenderness, no umbilical hernia, no ventral hernia - Integumentary Integumentary: pale - Musculoskeletal Musculoskeletal: generalized weakness - Psychiatric Psychiatric: no intact judgment & insight Results CBC & Chem 7: 12/13/20 06:58 12/13/20 06:58 Labs: Abnormal Lab Results - Last 24 Hours (Table) 12/12/20 12/13/20 12/13/20 Range/Units 05:00 06:58 06:58 RBC 2.79 L (4.30-5.90) m/uL Hgb 8.0 L (13.0-17.5) gm/dL Hct 27.0 L (39.0-53.0) % MCHC 29.7 L (31.0-37.0) g/dL RDW 20.9 H (11.5-15.5) % Plt Count 77 L (150-450) k/uL Blast Cells % 4 H* % Monocytes # (Manual) 1.04 H (0-1.0) k/uL Metamyelocytes # (Man) 0.26 H (0) k/uL Myelocytes # (Manual) 0.70 H (0) k/uL Promyelocytes # (Man) 0.26 H (0) k/uL Blast Cells # (Man) 0.35 H (0) k/uL Nucleated RBCs 26 H (0-0) /100 WBC Sodium 135 L (137-145) mmol/L Chloride 109 H (98-107) mmol/L Carbon Dioxide 18 L (22-30) mmol/L BUN 28 H (9-20) mg/dL Glucose 129 H (74-99) mg/dL Calcium 8.2 L (8.4-10.2) mg/dL Procalcitonin 48.65 H (0.02-0.09) ng/mL Microbiology - Last 24 Hours (Table) 12/12/20 12:26 Gram Stain - Preliminary Pleural Fluid Body Fluid Culture - Preliminary 12/11/20 21:32 Blood Culture - Preliminary Blood No Growth after 24 hours 12/11/20 21:32 Blood Culture - Preliminary Blood No Growth after 24 hours 12/12/20 12:26 Fungal Culture - Preliminary Pleural Fluid 12/12/20 12:26 Acid Fast Bacilli Culture - Preliminary Pleural Fluid Assessment and Plan (1) Thrombocytopenia Current Visit: Yes Status: Acute Priority: High Code(s): D69.6 - THROMBOCYTOPENIA, UNSPECIFIED SNOMED Code(s): 793231700 (2) Anemia Current Visit: Yes Status: Acute Priority: High Code(s): D64.9 - ANEMIA, UNSPECIFIED SNOMED Code(s): 011966538 Plan: peripheral blasts Plan: Based on patient's presentation and the blood counts differentials would include high-grade myelodysplastic syndrome, leukemia, marrow disorder etc. Unfortunately, patient's performance status is poor, and if he was found to have one of the more serious marrow diseases there is no treatment that could be offered that would outweigh the risks associated with it. I believe there has been some discussion amongst the family about how they are going to proceed with patient's care, maybe electing for hospice. we have ordered some labs for evaluation, recommend supportive care and transfusions for hemoglobin less than 7 or platelets less than 10,000 unless patient is symptomatic until family has made some decisions. We will follow up with any questions or concerns they may have. Further recommendations will follow. Dr. tobias tests: I seen and examined patient, performed H&P, developed impression and plan of care, discussed with dictator. Agree with dictation, documented as described
--- NOTE | 2020-12-13 22:50 | P.CONS ---
History of Present Illness - Reason for Consult Consult date: 12/13/20 left leg cellulitis Requesting physician: Lazara Manriquez - Chief Complaint weakness and falls x few days - History of Present Illness History of present illness : Patient is 89-year male was brought into the ER 2 days ago for evaluation of generalized weakness and pain in his left leg that the pain has been going on for several weeks and this patient apparen tly did have multiple falls at home also complaining of shortness of breath and he was noticed to have a large pleural effusion for the patient has been subsequently transferred to this facility for evaluation on presentation to the hospital the patient did have a fever of 101.3 degrees 100 with a low-grade fever this morning he was tachycardic white count has been normal however there is evidence of blood cells on the CBC creatinine has been normal patient is status post thoracocentesis completed yesterday with evidence of bloody pleural fluid nucleated cell has been 1250 blood culture has been pending so far pleural fluid cultures are currently pending patient is currently being treated with the vancomycin and Zosyn with concern 24 concern for left lower extremity cellulitis in this patient still did have significant bruising to the left lower extremity as well as left overall most of this information has been obtained from review the chart as the patient was unable to provide any reliable history Review of system: Positive point has been mentioned in HPI complete review could not be obtained because of underlying mental status Past medical history : Reviewed, documented below Past surgical history : Reviewed, documented below Social history: Reviewed, documented below Medications: Reviewed, as documented below EXAMINATION: Vital sigans= Reviewed and documented below GENERAL DESCRIPTION: Elderly male lying in bed, no distress. No tachypnea or accessory muscle of respiration use. HEENT: Shows Pallor , no scleral icterus. Oral mucous membrane is dry. NECK: Trachea central, no thyromegaly. LUNGS: Unlabored breathing. Decreased breath sound at bases. No wheeze or crackle. HEART: S1, S2, regular rate and rhythm. ABDOMEN: Soft, no tenderness , guarding or rigidity EXTREMITIES: Bruising especially in the left upper and lower extremity left leg is slightly warm to touch no skin breakdown or drainage. SKIN: No rash, no masses palpable. NEUROLOGICAL: The patient is lethargic orientation could not determine LABS AND RADIOLOGY: Reviewed results see below Assessment : 1-patient with a fever in this patient presented to hospital with generalized weakness he did have multiple falls did have evidence of significant bruising to the upper and lower extremity and a possible component of left lower extremity cellulitis also have a large pleural effusion status post thoracocentesis which has been mostly bloody and did have evidence of blasts in the CBC, source of fever could be related to possible pneumonia parapneumonic effusion and left lower extremity cellulitis Plan: 1-patient to continue with Zosyn 3.375 g every 8 hours while waiting for the culture finalized enterococcal for both possible pneumonia as well as left neck cellulitis 2-discontinue vancomycin decrease risk of nephrotoxicity We will follow on clinical condition and cultures to further adjust medication if needed Thank you for this consultation we will follow the patient along with you Past Medical History Past Medical History: No Reported History History of Any Multi-Drug Resistant Organisms: None Reported Past Surgical History: No Surgical Hx Reported, Unable to Obtain Past Anesthesia/Blood Transfusion Reactions: No Reported Reaction Smoking Status: Never smoker - Past Family History Father Family Medical History: Unable to Obtain Medications and Allergies Home Medications Medication Instructions Recorded Confirmed Type Docusate [Colace] 100 mg PO DAILY PRN 12/11/20 12/11/20 History Ibuprofen [Motrin Ib] 200 mg PO Q8H PRN 12/11/20 12/11/20 History Allergies Allergy/AdvReac Type Severity Reaction Status Date / Time No Known Allergies Allergy Verified 12/11/20 21:51 Physical Exam Vitals: Vital Signs Temp Pulse Pulse Resp BP BP Pulse Ox 12/13/20 08:04 100.4 F H 108 H 20 138/72 99 12/13/20 04:11 99.2 F 82 20 121/60 96 12/13/20 02:00 84 18 12/12/20 22:25 97.2 F L 84 116/70 95 12/12/20 20:00 98.2 F 88 18 117/68 96 12/12/20 17:06 99.1 F 89 19 110/49 100 12/12/20 13:58 98.1 F 92 22 101/65 99 12/12/20 13:12 88 20 108/66 96 12/12/20 12:20 90 18 112/72 12/12/20 09:27 99.0 F 90 20 108/66 100 Intake and Output 12/12/20 12/13/20 12/13/20 22:59 06:59 14:59 Intake Total 100 0 Balance 100 0 Intake: Intake, IV Titration 100 Amount Piperacillin-Tazobactam 3 100 .375 gm In Sodium Chloride 0.9% 100 ml @ 25 mls/hr IVPB Q8HR REPLACED BY [facility] Rx# :[id number] Oral 0 0 Other: Voiding Method Diaper Diaper Diaper Incontinent Incontinent Incontinent # Voids 3 1 Weight 83 kg Results CBC & Chem 7: 12/13/20 06:58 12/13/20 06:58 Labs: Abnormal Lab Results - Last 24 Hours (Table) 12/11/20 12/11/20 12/12/20 Range/Units 21:32 21:32 05:00 RBC (4.30-5.90) m/uL Hgb (13.0-17.5) gm/dL Hct (39.0-53.0) % MCHC (31.0-37.0) g/dL RDW (11.5-15.5) % Plt Count (150-450) k/uL Blast Cells % % Monocytes # (Manual) (0-1.0) k/uL Metamyelocytes # (Man) (0) k/uL Myelocytes # (Manual) (0) k/uL Promyelocytes # (Man) (0) k/uL Blast Cells # (Man) (0) k/uL Nucleated RBCs (0-0) /100 WBC Pathologist Review See comment A Sodium (137-145) mmol/L Chloride (98-107) mmol/L Carbon Dioxide (22-30) mmol/L BUN (9-20) mg/dL Glucose (74-99) mg/dL Calcium (8.4-10.2) mg/dL Troponin I (0.000-0.034) ng/mL Procalcitonin 48.65 H (0.02-0.09) ng/mL Urine Protein 1+ H (Negative) Hyaline Casts 14 H (0-2) /lpf Urine Mucus Rare H (None) /hpf 12/12/20 12/13/20 12/13/20 Range/Units 08:19 06:58 06:58 RBC 2.79 L (4.30-5.90) m/uL Hgb 8.0 L (13.0-17.5) gm/dL Hct 27.0 L (39.0-53.0) % MCHC 29.7 L (31.0-37.0) g/dL RDW 20.9 H (11.5-15.5) % Plt Count 77 L (150-450) k/uL Blast Cells % 4 H* % Monocytes # (Manual) 1.04 H (0-1.0) k/uL Metamyelocytes # (Man) 0.26 H (0) k/uL Myelocytes # (Manual) 0.70 H (0) k/uL Promyelocytes # (Man) 0.26 H (0) k/uL Blast Cells # (Man) 0.35 H (0) k/uL Nucleated RBCs 26 H (0-0) /100 WBC Pathologist Review Sodium 135 L (137-145) mmol/L Chloride 109 H (98-107) mmol/L Carbon Dioxide 18 L (22-30) mmol/L BUN 28 H (9-20) mg/dL Glucose 129 H (74-99) mg/dL Calcium 8.2 L (8.4-10.2) mg/dL Troponin I 0.587 H* (0.000-0.034) ng/mL Procalcitonin (0.02-0.09) ng/mL Urine Protein (Negative) Hyaline Casts (0-2) /lpf Urine Mucus (None) /hpf Microbiology - Last 24 Hours (Table) 12/12/20 12:26 Gram Stain - Preliminary Pleural Fluid Body Fluid Culture - Preliminary 12/11/20 21:32 Blood Culture - Preliminary Blood No Growth after 24 hours 12/11/20 21:32 Blood Culture - Preliminary Blood No Growth after 24 hours 12/12/20 12:26 Fungal Culture - Preliminary Pleural Fluid 12/12/20 12:26 Acid Fast Bacilli Culture - Preliminary Pleural Fluid
[2020-12-13 23:34] LABS: Protein, Total 5.5 g/dL (6.2-8.2)
[2020-12-14] MEDS: PIPERACILLIN-TAZOBACTAM 3.375 GM in SODIUM CHLORIDE 0.9% 100 ML IVPB SCH ×4 (00:34→23:46)
[2020-12-14 00:44] LABS: % Iron Saturation 5.5 (15.00-50.00); Ferritin 981.2 ng/mL (22.0-322.0)
[2020-12-14] MEDS: DILTIAZEM 125 MG in SODIUM CHLORIDE 0.9% 100 ML IV SCH ×2 (05:47→16:54)
[2020-12-14 06:38] LABS: Anisocytosis Moderate; HCT 27.3 % (39.0-53.0); HGB 8.4 gm/dL (13.0-17.5); Hypochromasia Marked; MCH 28.7 pg (25.0-35.0); MCHC 30.9 g/dL (31.0-37.0); MCV 93.1 fL (80.0-100.0); Macrocytosis Slight; Poikilocytosis Marked; RBC 2.94 m/uL (4.30-5.90); RDW 20.7 % (11.5-15.5)
[2020-12-14 06:39] LABS: Platelet Count 53 k/uL (150-450)
[2020-12-14 07:07] LABS: Band Neutrophils % 18 %; Blast Cells # (M) 1.34 k/uL (0); Lymphocytes # (M) 3.01 k/uL (1.0-4.8); Metamyelocytes # (M) 1.67 k/uL (0); Metamyelocytes % 10 %; Monocytes # (M) 5.01 k/uL (0-1.0); Neutrophils % (M) 16 %; Nucleated Red Blood Cells 16 /100 WBC (0-0); Total Cells Counted 100; WBC 16.7 k/uL (3.8-10.6)
[2020-12-14 07:09] LABS: Anisocytosis (M) Present; Poikilocytosis (M) Present; Polychromasia Present
[2020-12-14 07:10] LABS: RBC Fragments Present
[2020-12-14 07:51] LABS: Calcium 8.2 mg/dL (8.4-10.2); Potassium 3.8 mmol/L (3.5-5.1)
[2020-12-14] MEDS: METOPROLOL SUCCINATE (ER) 25 MG TAB.ER.24H PO SCH (08:29)
[2020-12-14] MEDS: PANTOPRAZOLE 40 MG/10 ML VIAL IVP SCH (08:29)
[2020-12-14] MEDS ORDERED: METOPROLOL SUCCINATE (ER) 25 MG TAB.ER.24H PO STA (08:46)
[2020-12-14] MEDS ORDERED: VANCOMYCIN TROUGH DUE 1 EACH MISC MISCELLANE ONE (11:00)
[2020-12-14 11:10] LABS: Free Kappa Lt Chain Qnt, Serum 4.57 mg/dL (0.33-1.94)
--- NOTE | 2020-12-14 11:54 | P.PN ---
Subjective HISTORY OF PRESENTING ILLNESS This is a pleasant 89-year-old male with no significant past medical history. Unknown if patient follows with a nurse intern. We have been asked to see in consultation for elevated troponin. Patient is seen and examined in the emergency department. He was a transfer from [facility] in [facility]. He had presented there with generalized weakness and pain in his left leg and had multiple falls at home. Patient had been transferred for both cardiology and pulmonology consultation. Patient seen and examined at bedside he is confused, He is alert, oriented to self. He is unsure what brought him to the hospital. He denies any pain, chest pain, palpitations, abdominal pain, fever, chills, nausea, vomiting. He is unsure how long his left arm, left leg, and left side have been bruised. He denies history of bleeding problems, coronary artery disease, ND, diabetes, cancer. Echocardiogram obtained which revealed ejection fraction of 4045 percent, mild aortic valve sclerosis, mild mitral regurgitati on, mild tricuspid regurgitation, large pleural effusion. Workup at [facility] included CT chest revealed large left pleural effusion, with atelectasis of the left lung. This was negative for pulmonary embolism according to the record Fecal occult blood test was negative Brain CT which is negative for intracranial hemorrhage. Ultrasound of the left upper extremity and bilateral lower extremities which were negative for DVT. Labs revealed- he had a significant anemia at 6.8, Lactate was 6.3, WBC 16.8, platelets 65, BUN 17, serum creatinine 0.8, sodium 134, potassium 4.5. elevated troponin at 0.47. He was given 1 g of ceftriaxone prior to transfer for left and right lower extremity cellulitis. He has recieved 1 unit of PRBC for anemia EKG sinus tachycardia, no significant ST-T wave abnormalities Chest xray Large left pleural effusion left sided consoidation, pulmonary congestion. Aneurysm of the aortic arch Laboratory reviewed, WBC 10.4, hemoglobin 10.4, platelets 73, sodium 133, potassium 4.5, BUN 22, serum creatinine 1.07, lactate 4.0, trace 3.04, 0.059 proBNP 15,400 12/14/2020 Pt seen and examined sitting up in bed in no acute distress. He states he is feeling better today overall. He has no further symptoms of abdominal pain. He denies chest pain, dizziness or palpitations. He continues to be in afib with variable ventricular rates. He is now on cardizem 10 mg and his blood pressure seems to be tolerating it at this time. Blood pressure 105/58 heart rate 109 afebrile and maintaining oxygen saturation on nasal cannula. Laboratory data reviewed, WBC 16.7, hemoglobin 8.4, platelets 53, blast cells 8, sodium 139, potassium 3.8, creatinine 1.09. PHYSICAL EXAMINATION CONSTITUTIONAL: Confused, restless HEENT: Head is normocephalic. Pupils are equal, round. No JVD. Bruising on right side of face CHEST EXAMINATION: Lungs are rhonci and diminished bilaterally to auscultation. HEART EXAMINATION: Irregular rate and rhythm. S1, S2 heard. Systolic murmur noted. No gallops or rub. EXTREMITIES: Decreased pulses in bilateral lower extremities. Moderate bilaterally lower extremity edema. Petechiae of the bilateral lower extremities, Dependent non-blanchable redness left lower extremity up to his knee, Dependent non-blanchable redness left upper extremity, ecchymosis left side of rib and abdomen. ASSESSMENT Acute Anemia s/p 1unit of PRBC Elevated troponin, not indicative of acute coronary syndrome Acute systolic heart failure Large Left pleural effusion Altered mental status Bicytopenia Lactic acidosis Blast cells positive of cbc - uknown if patient has a history of cancer Petechiae and dependent non-blanchable redness of left lower extremity, left upper extremity and left side of rib- possibly could be related to patient on floor for long periods of time if on left side. New onset paroxysmal atrial fibrillation with rapid ventricular rate. PLAN Increase toprol to 50 mg daily in an attempt to get her off the cardizem infusion. Currently the family is considering comfort care and taking him home. This is reasonable from a cardiac perspective on PO toprol for rate control. Nurse Practitioner note has been reviewed, I agree with a documented findings and plan of care. Patient was seen and examined. Objective - Vital Signs Vital signs: Vital Signs Temp 97.9 F 12/14/20 04:00 Pulse 109 H 12/14/20 04:00 Resp 20 12/14/20 04:00 BP 105/58 12/14/20 04:00 Pulse Ox 100 12/14/20 04:00 Intake & Output 09/15/21 09/16/21 09/16/21 18:59 06:59 18:59 Intake Total 100 125 480 Output Total 750 500 Balance -650 -375 480 Weight 75.5 kg Intake: Intake, IV Titration 50 125 Amount Diltiazem 125 mg In 125 Sodium Chloride 0.9% 100 ml @ 10 MG/HR 10 mls/hr IV .[id number] [facility] Rx#: [id number] Diltiazem 125 mg In 50 Sodium Chloride 0.9% 100 ml @ 15 MG/HR 15 mls/hr IV .[id number] [facility] Rx#: [id number] Oral 50 480 Output: Urine 750 500 Other: Voiding Method Diaper Indwelling Catheter Incontinent # Voids 1 0 - Labs CBC & Chem 7: 12/14/20 05:39 12/14/20 05:39 Labs: Abnormal Lab Results - Last 24 Hours (Table) 12/13/20 12/13/20 12/14/20 Range/Units 08:37 08:37 05:39 WBC 16.7 H (3.8-10.6) k/uL RBC 2.94 L (4.30-5.90) m/uL Hgb 8.4 L (13.0-17.5) gm/dL Hct 27.3 L (39.0-53.0) % MCHC 30.9 L (31.0-37.0) g/dL RDW 20.7 H (11.5-15.5) % Plt Count 53 L (150-450) k/uL Blast Cells % 8 H* % Monocytes # (Manual) 5.01 H (0-1.0) k/uL Metamyelocytes # (Man) 1.67 H (0) k/uL Blast Cells # (Man) 1.34 H (0) k/uL Nucleated RBCs 16 H (0-0) /100 WBC Chloride (98-107) mmol/L Carbon Dioxide (22-30) mmol/L BUN (9-20) mg/dL Glucose (74-99) mg/dL Calcium (8.4-10.2) mg/dL Iron 12 L (65-175) ug/dL TIBC 218 L (228-460) ug/dL % Saturation 5.50 L (15.00-50.00) Ferritin 981.2 H (22.0-322.0) ng/mL Total Protein (PEP) 5.5 L (6.2-8.2) g/dL Vitamin B12 1789.0 H (200.0-944.0) pg/mL Free [place] LC, Quant 4.57 H (0.33-1.94) mg/dL Free [place] LC, Quant 4.10 H (0.57-2.63) mg/dL 12/14/20 Range/Units 05:39 WBC (3.8-10.6) k/uL RBC (4.30-5.90) m/uL Hgb (13.0-17.5) gm/dL Hct (39.0-53.0) % MCHC (31.0-37.0) g/dL RDW (11.5-15.5) % Plt Count (150-450) k/uL Blast Cells % % Monocytes # (Manual) (0-1.0) k/uL Metamyelocytes # (Man) (0) k/uL Blast Cells # (Man) (0) k/uL Nucleated RBCs (0-0) /100 WBC Chloride 109 H (98-107) mmol/L Carbon Dioxide 20 L (22-30) mmol/L BUN 32 H (9-20) mg/dL Glucose 135 H (74-99) mg/dL Calcium 8.2 L (8.4-10.2) mg/dL Iron (65-175) ug/dL TIBC (228-460) ug/dL % Saturation (15.00-50.00) Ferritin (22.0-322.0) ng/mL Total Protein (PEP) (6.2-8.2) g/dL Vitamin B12 (200.0-944.0) pg/mL [place] LC, Quant (0.33-1.94) mg/dL Free [place] LC, Quant (0.57-2.63) mg/dL Microbiology - Last 24 Hours (Table) 12/12/20 12:26 Acid Fast Bacilli Smear - Final Pleural Fluid Acid Fast Bacilli Culture - Preliminary 12/11/20 21:32 Blood Culture - Preliminary Blood No Growth after 48 hours 12/11/20 21:32 Blood Culture - Preliminary Blood No Growth after 48 hours 12/12/20 12:26 Gram Stain - Preliminary Pleural Fluid Body Fluid Culture - Preliminary
[2020-12-14 12:06] LABS: Amorphous Sediment,Urine Moderate /hpf; Appearance,Urine Turbid (Clear); Bilirubin,Urine Negative (Negative); Blood,Urine Large (Negative); Color,Urine Yellow; Glucose,Urine (UA) Negative (Negative); Ketones,Urine 1+ (Negative); Leukocyte Esterase,Urine Small (Negative); Mucus,Urine Rare /hpf; Nitrite,Urine Negative (Negative); Protein,Urine 2+ (Negative); RBC,Urine 104 /hpf (0-5); Specific Gravity,Urine 1.026 (1.001-1.035); Urobilinogen,Urine <2.0 mg/dL (<2.0); WBC,Urine 46 /hpf (0-5)
--- NOTE | 2020-12-14 13:09 | P.PN ---
Subjective Progress Note Date: 12/14/20 Principal diagnosis: Acute hypoxic for failure secondary to left sided pleural effusion/hemothorax. Probably traumatic in nature or parapneumonic, or malignant. 89-year-old male patient who presented as a transfer from [facility] in [facility]. apparently he was found on the floor after he had fallen, and it was unknown how much time he had spent on the floor. he reportedly was found by one of his family members. He lives alone. He's had multiple falls at home. he has multiple areas of bruising on his body , upper and lower extremities and torso. He is generally weak, and he is having increased pain and some pain in his left leg which is particularly more bruised and swollen. he reports some dyspnea, but no chest discomfort. he was found to be anemic and had an elevated troponin. chest x-ray on admission showed a large left-sided pulmonary consolidation and pleural fluid. There was pulmonary congestion, there was a tracheal shift to the right. admission labs showed hemoglobin is 7.5, his platelet count was 62, white blood cell count was 13.1, his last cells were 4, INR is 1.4, sodium was 130, potassium is 5.2, chloride is 106, CO2 is 15, BUN was 20, creatinine 0.85, plasma lactic acid was 2.8, calcium was 8.1, total bilirubin was 2.0, AST was 64, ALT was 20, alkaline phosphatase was 61, troponin was 0.4-0, proBNP was 15,400, he was tested for COVID-19 and he was found to be negative. He is a poor historian, however he is awake and alert, he thinks she is at home, he is able to answer simple questions. is febrile with a temp of 101.3 Fahrenheit rectal, slightly tachycardic, in sinus mechanism, he is currently on 6 L of oxygen his pulse ox is 98%, blood pressure is 113/65. he was placed on broad-spectrum antibiotics in the form of Rocephin, and vancomycin was also added. he was started on IV Lasix at 40 mg every 12 hours. patient is unable to tell us about his medical history, but from reviewing his home medications he only takes Motrin and Colace. echocardiogram was completed showing EF between 40-45% , no evidence of aortic regurgitation, mild MR, mild TR, large pleural effusion. ultrasound of the chest has been completed showing 10.9 cm pleural fluid pocket on the left. After contacting his family ( his [id number] and his son who are currently driving under way to the hospital) consent was obtained for left-sided thoracentesis. Patient's CODE STATUS is DO NOT RESUSCITATE, and the [id number] had stated that hospice and comfort care will possibly be initiated in view of patient's general decline recently. after positioning the patient, and also explained the procedure to him and obtaining verbal consent from the patient himself , 1.8 L of grossly bloody fluid was removed from the left pleural space uneventfully. patient tolerated procedure very well, he is breathing easier, had some slight cough after the procedure, but no significant discomfort, he is setting 100% on 4 L, follow-up chest x-ray showing mild interstitial density, and significant interval improvement of the patient's previous left pleural effusion, there is a small left pleural effusion still remains, mild patchy basilar densities. And possibility of a trace left apical 2.5 mm pneumothorax was a difficult to exclude. And follow-up was recommended. On 12/13/2020 patient seen in follow-up on selective care unit. Patient is resting in bed, however he states that he is hurting all over, he is grimacing, he is moaning, his morphine was increased today for generalized pain. He is currently on 2 L of oxygen, pulse ox is 98%, breathing fairly comfortably, still having some low-grade fevers, with a T-max of 100.2F, he is status post left- sided thoracentesis yesterday with removal of 1.8 L of bloody effusion and the pleural fluid was sent for analysis. Cytology is still pending today, pleural fluid analysis reveals exudative fluid with protein of 3.2 g, and LDH of 395, red blood cells were 574,500. Pleural fluid cultures are pending, patient remains on empiric antibiotics with Zosyn and vancomycin, his labs have been reviewed, his white blood cell count is 8.7, hemoglobin is 8.0, platelet count is 77, his differential was significantly abnormal, with blast cells of 4, sodium of 135, potassium is 4.1, chloride is 109, CO2 is 18, B1 is 20, creatinine is 1.09. His chest x-ray today shows increasing left lower lobe consolidation with air bronchograms, and subsegmental atelectasis at the right base, and resolution of the prior left apical pneumothorax. Cardiology is also following, echocardiogram has been reviewed, showing mild to moderate impairment of the left ventricular systolic function with an EF of 40-45%. Patient still remains in atrial fibrillation, still slightly tachycardic, with a rate of 106 BPM, and she remains on Cardizem infusion at 15 mg per hour. Reevaluated today on 12/14/2020, patient is resting at a bedside chair, very comfortable, does not seem to be in any distress. Patient remains on 4 L nasal cannula, O2 saturation is ranging between 90 and 95%. He is hemodynamically stable, blood pressure 106/68 heart rate of 80 and he is afebrile with a temp of 97.8. CBC showed leukocytosis with WBC count of 16.7, hemoglobin of 8.4, platelets are running low at 53,000, continues to have abnormal differential with blast cells of 8% noted, and there is evidence of metamyelocytes.. Patient was seen by oncology on consultation, and the recommendation was not to do any invasive procedures for diagnosis, recommendation is possibly comfort care patient is not a candidate for any intervention to diagnose leukemia or myelodysplastic syndrome or any myeloproliferative disorder. The fluid that I drained from the left lung was exudative, cytology is still pending. Follow-up chest x-ray done post thoracentesis is suggestive of left lower lobe consoli dation/bronchogram, and subsegmental atelectasis. Underlying pneumonia is not entirely ruled out, patient remains on antibiotics empirically. Objective - Vital Signs Vital signs: Vital Signs Temp 97.8 F 12/14/20 11:58 Pulse 107 H 12/14/20 11:58 Resp 22 12/14/20 11:58 BP 106/68 12/14/20 11:58 Pulse Ox 90 L 12/14/20 11:58 Intake & Output 12/13/20 12/14/20 12/14/20 18:59 06:59 18:59 Intake Total 100 125 480 Output Total 750 500 Balance -650 -375 480 Weight 75.5 kg Intake: Intake, IV Titration 50 125 Amount Diltiazem 125 mg In 125 Sodium Chloride 0.9% 100 ml @ 10 MG/HR 10 mls/hr IV .[id number] [facility] Rx#: [id number] Diltiazem 125 mg In 50 Sodium Chloride 0.9% 100 ml @ 15 MG/HR 15 mls/hr IV .[id number] [facility] Rx#: [id number] Oral 50 480 Output: Urine 750 500 Other: Voiding Method Diaper Indwelling Catheter Indwelling Catheter Incontinent # Voids 1 0 - Exam GENERAL EXAM: Revealed a 89-year-old white male, chronically ill, slightly co nfused, sitting at a bedside chair, in no distress. Patient has bruises and areas of ecchymosis all over including face, left lower extremity, and upper extremities. HEAD: Normocephalic/atraumatic. ENT: PERRLA, EOMI, anicteric, no neck masses, no JVD, no stridor CHEST: No chest wall deformity. Symmetrical expansion. LUNGS: Minimal fine crackles at the left base. No rhonchi and no wheezes. CVS: Regular rate and rhythm, normal S1 and S2, no gallops, no murmurs, no rubs ABDOMEN: Soft, nontender. No hepatosplenomegaly, normal bowel sounds, no guarding or rigidity. EXTREMITIES: No clubbing, nonpitting 1+edema bilateral lower extremities, no cyanosis, 2+ pulses and upper and lower extremities. MUSCULOSKELETAL: Muscle strength and tone normal.patient has stiffness, and weakness SKIN: Multiple areas of ecchymosis and bruising noted all over upper extremities and left lower extremity. On the face CENTRAL NERVOUS SYSTEM: Alert oriented 1, otherwise no gross focal deficits psychiatric: Normal mood, blunt affect, confused mental status - Labs CBC & Chem 7: 12/14/20 05:39 12/14/20 05:39 Labs: Abnormal Lab Results - Last 24 Hours (Table) 12/13/20 12/13/20 12/13/20 Range/Units 08:37 08:37 08:37 WBC (3.8-10.6) k/uL RBC (4.30-5.90) m/uL Hgb (13.0-17.5) gm/dL Hct (39.0-53.0) % MCHC (31.0-37.0) g/dL RDW (11.5-15.5) % Plt Count (150-450) k/uL Blast Cells % % Monocytes # (Manual) (0-1.0) k/uL Metamyelocytes # (Man) (0) k/uL Blast Cells # (Man) (0) k/uL Nucleated RBCs (0-0) /100 WBC Chloride (98-107) mmol/L Carbon Dioxide (22-30) mmol/L BUN (9-20) mg/dL Glucose (74-99) mg/dL Calcium (8.4-10.2) mg/dL Iron 12 L (65-175) ug/dL TIBC 218 L (228-460) ug/dL % Saturation 5.50 L (15.00-50.00) Ferritin 981.2 H (22.0-322.0) ng/mL Total Protein (PEP) 5.5 L (6.2-8.2) g/dL Vitamin B12 1789.0 H (200.0-944.0) pg/mL RBC Folate 1,349 H (280 - 791) ng/mL Urine Protein (Negative) Urine Ketones (Negative) Urine Blood (Negative) Ur Leukocyte Esterase (Negative) Urine RBC (0-5) /hpf Urine WBC (0-5) /hpf Amorphous Sediment (None) /hpf Urine Mucus (None) /hpf Free [place] LC, Quant 4.57 H (0.33-1.94) mg/dL Free Lambda LC, Quant 4.10 H (0.57-2.63) mg/dL 12/14/20 12/14/20 12/14/20 Range/Units 05:39 05:39 11:15 WBC 16.7 H (3.8-10.6) k/uL RBC 2.94 L (4.30-5.90) m/uL Hgb 8.4 L (13.0-17.5) gm/dL Hct 27.3 L (39.0-53.0) % MCHC 30.9 L (31.0-37.0) g/dL RDW 20.7 H (11.5-15.5) % Plt Count 53 L (150-450) k/uL Blast Cells % 8 H* % Monocytes # (Manual) 5.01 H (0-1.0) k/uL Metamyelocytes # (Man) 1.67 H (0) k/uL Blast Cells # (Man) 1.34 H (0) k/uL Nucleated RBCs 16 H (0-0) /100 WBC Chloride 109 H (98-107) mmol/L Carbon Dioxide 20 L (22-30) mmol/L BUN 32 H (9-20) mg/dL Glucose 135 H (74-99) mg/dL Calcium 8.2 L (8.4-10.2) mg/dL Iron (65-175) ug/dL TIBC (228-460) ug/dL % Saturation (15.00-50.00) Ferritin (22.0-322.0) ng/mL Total Protein (PEP) (6.2-8.2) g/dL Vitamin B12 (200.0-944.0) pg/mL RBC Folate (280 - 791) ng/mL Urine Protein 2+ H (Negative) Urine Ketones 1+ H (Negative) Urine Blood Large H (Negative) Ur Leukocyte Esterase Small H (Negative) Urine RBC 104 H (0-5) /hpf Urine WBC 46 H (0-5) /hpf Amorphous Sediment Moderate H (None) /hpf Urine Mucus Rare H (None) /hpf Free [place] LC, Quant (0.33-1.94) mg/dL Free Lambda LC, Quant (0.57-2.63) mg/dL Microbiology - Last 24 Hours (Table) 12/12/20 12:26 Acid Fast Bacilli Smear - Final Pleural Fluid Acid Fast Bacilli Culture - Preliminary 12/11/20 21:32 Blood Culture - Preliminary Blood No Growth after 48 hours 12/11/20 21:32 Blood Culture - Preliminary Blood No Growth after 48 hours 12/12/20 12:26 Gram Stain - Preliminary Pleural Fluid Body Fluid Culture - Preliminary Assessment and Plan Assessment: Impression: Acute hypoxic respiratory failure secondary to large left-sided pleural effusion/hemothorax, differential diagnoses includes trauma, parapneumonic effusion, and malignancy. Cytology on the fluid is pending. Status post thoracentesis, and 1.8 L of bloody effusion drained from the left pleural space. Suspect chronic anemia related to blood loss, large pneumothorax, and possible underlying myeloproliferative disorder. Abnormal CBC with blast count elevated, please refer to full consultation by oncology. Paroxysmal atrial fibrillation. Being followed by cardiology. Thrombocytopenia, possible underlying myelodysplastic syndrome. History of multiple falls at home Underlying dementia. Multiple areas of ecchymosis all over his body most likely secondary to falls and a relatively low platelets. Failure to thrive. Recommendation: Continue present supportive care measures. Continue empiric antibiotics. Pro calcitonin was significantly elevated and the patient is on treatment for presumptive pneumonia and possible parapneumonic effusion. Continue pain control medications. Strongly recommend comfort care measures. Family is contemplating comfort care approach. This is strongly recommended. We'll continue to follow, awaiting the cytology on the pleural effusion Time with Patient: Less than 30
[2020-12-14 13:32] LABS: Albumin 2.55 g/dL (3.80-4.90); Gamma Globulin 1.12 g/dL (0.70-1.50)
[2020-12-14] MEDS: MORPHINE SULFATE 4 MG/ML SYRINGE IVP PRN ×2 (13:58→20:08)
--- NOTE | 2020-12-14 14:00 | P.PN ---
Subjective Progress Note Date: 12/14/20 12/12/2020 This is a 89-year-old male, patient is alert and oriented times person. Patient was transferred to our facility from [facility], for pulmonary and cardiology services. Per paperwork, patient does not take any home medications, there are no medical diagnoses. Patient is a very poor historian, he states that he does live by himself, he states that he does not see a physician. Patient is able to tell me that he has a son that lives close by, and he has a daughter that lives in [place]. Patient denies any chest pain, shortness of breath, cough. Patient denies any generalized pain. Patient states that the cellulitis to his left lower leg has presented like that for quite a while, he does admit to frequent falls at home. Patient had an extensive workup at [facility], bilateral duplex Doppler was negative for DVT, as well as the left upper extremity was negative for DVT. In addition, patient had a brain CT that was negative for intracranial hemorrhage, CT of the chest that was negative for pulmonary embolism via medical records from [facility]. Patient was found to have a hemoglobin of 6.8, negative Hemoccult, did receive 1 unit of PRBCs. His hemoglobin today is 7.4. Patient was found to have left- sided pulmonary consolidation and pleural fluid, and congestive heart failure on a chest x-ray. It is unsure whether this is acute or chronic. Patient was evaluated by pulmonary services today who ordered a chest ultrasound, plan is for patient to undergo a left chest thoracentesis with Dr. Wilcox today. Patient had an echocardiogram done that revealed an ejection fraction of 40-45%, mild mitral regurgitation, mild tricuspid regurgitation, large pleural effusion. Cardiac enzymes have remained positive 3, 0.420, 0.595, 0.587. Lactic acid on admission was 2.8, patient was treated with a dose of IV Rocephin, IV Vanco. Repeat lactic acid was 4, at this time patient was monitored due to findings of a possible acute congestive heart failure, patient was not fluid resuscitated. Repeat lactic acid this morning was 1.8. Patient is continued on IV Lasix 40 mg every 12 hours. Per family, when patient was brought into the ER, expressed s ome desire to discuss comfort measures for this patient. Family will be present at the bedside later today. Patient is a DO NOT RESUSCITATE. 12/13/2020 Patient is evaluated today sitting on the bedside with physical therapy. Patient is tachypneic, states that he has been generalized pain everywhere. Patient is still alert to person. Pulse oximetry obtained which revealed a pulse ox in the 70s on room air after working with physical therapy. Patient was assisted back into the bed, and oxygen saturation came up to 100% on 2-3 L nasal cannula. Patient states that he is having quite a bit of pain in that left foot and ankle, there appears to be some mild edema, to the left ankle. Patient has bruising to his left thorax, as well as bruising to his coccyx. Suspect patient has been falling at home, x-rays will be obtained of his left foot and ankle. Patient went into A. fib RVR, was started on IV Cardizem, oral Toprol from cardiology. Patient is on IV antibiotics. Morphine has been increased. Pathology is still pending from left thoracentesis. Patient and 1.8 L removed yesterday from his left lung, that was bloody in appearance. Patient's hemoglobin is stable today at 8, platelet count 77. Patient's blast cells remain critical. Oncology workup in progress. Patient is febrile 100.4 T-max, heart rate 108, blood pressure 138/72, 99% 2L nc. 12/14/2020 Patient is sitting in the chair after work with PT, patient is alert and oriented 1. Patient is wishing to go home. Patient has severe bruising to his left upper extremity, left lower extremity. Left ankle and foot x-rays are negative for any acute fracture, soft tissue swelling is noted. Patient is maintained on IV Cardizem, IV Zosyn. Patient is 5% on 3 L nasal cannula. He denies any chest pain, cough, shortness of breath. Patient's hemoglobin is stable at 8.4, no signs of acute bleeding. Patient is being evaluated by oncology. Current recommendations are for hospice due to poor prognosis. Pathology is still pending from thoracentesis. Patient is a DO NOT RESUSCITATE. REVIEW OF SYSTEMS: CONSTITUTIONAL: Reports fever, no malaise, no fatigue. HEENT: No recent visual problems or hearing problems. Denied any sore throat. CARDIOVASCULAR: No chest pain, orthopnea, PND, no palpitations, no syncope. PULMONARY: No shortness of breath, no cough, no hemoptysis. GASTROINTESTINAL: No diarrhea, no nausea, no vomiting, no abdominal pain. NEUROLOGICAL: No headaches, no weakness, no numbness. HEMATOLOGICAL: Denies any bleeding or petechiae. GENITOURINARY: Denies any burning micturition, frequency, or urgency. MUSCULOSKELETAL/RHEUMATOLOGICAL: Denies any joint pain, swelling, or any muscle pain. ENDOCRINE: Denies any polyuria or polydipsia. The rest of the 14-point review of systems is negative. Patient is a poor historian, denied all complaints. PHYSICAL EXAMINATION: GENERAL: The patient is alert and oriented x1, patient does have some mild expiratory wheeze, audible. Well developed. HEENT: Pupils are round and equally reacting to light. EOMI. No scleral icterus. No conjunctival pallor. Normocephalic, atraumatic. No pharyngeal erythema. No thyromegaly. CARDIOVASCULAR: S1 and S2 present. No murmurs, rubs, or gallops. PULMONARY: Diminished lung sounds, with expiratory wheeze. ABDOMEN: Soft, nontender, nondistended, normoactive bowel sounds. No palpable organomegaly. MUSCULOSKELETAL: No joint swelling or deformity. EXTREMITIES: No cyanosis, clubbing. +1 mild pitting edema bilateral NEUROLOGICAL: Gross neurological examination did not reveal any focal deficits. SKIN: Some scattered ecchymosis, left lower extremity from knee to ankle displays a purplish red color. There is not a break in the skin. Assessment and Plan: Assessment: Acute hypoxic respiratory failure secondary to CHF, on 3 doses of cannula, titrate as needed, Lasix on hold. Sepsis due to left lower extremity chronic cellulitis and possible pneumonia, on IV antibiotics, pathology pending from thoracentesis. Lactic acidosis, secondary to left lower extremity cellulitis, sepsis, improved Congestive heart failure, acute on chronic, systolic, ejection fraction 40-45% chest x-ray reveals congestive heart failure. BNP - 15,400, Lasix on hold Pleural effusion related to CHF versus pneumonia, pathology pending Lasix on hold Anemia of chronic disease - hemoglobin currently stable, transfuse for hemoglobin less than 7. Left lower extremity cellulitis, most likely chronic Hypervolemic hyponatremia, resolved, continue to monitor Acute toxic encephalopathy related to sepsis, unsure what patient's baseline is, continue with IV antibiotics A. fib RVR on IV Cardizem Leukocytosis due to sepsis, white count 16.7 continue on IV antibiotics, possibly due to a leukemia - onc recommending hospice Bicytopenia - plt 53, hgb 8.4, possibly due to a myelodysplastic disorder or other marrow disorder - onc recommending hospice. Elevated troponin secondary to acute on chronic congestive heart failure, Lasix on hold, unable to rule out ACS at this time cardiology following GI prophylaxis - IV Protonix DVT prophylaxis - Deferred due to bicytopenia, status post PRBC CODE STATUS - NO CODE without mechanical ventilation Awaiting pathology from thoracentesis, Lasix on hold. After reviewing consultations, it was felt that hospice for this patient is appropriate, this was discussed extensively with the family at the bedside and they are agreeing. Hospice has been consult. Objective - Vital Signs Vital signs: Vital Signs Temp 97.9 F 12/14/20 04:00 Pulse 109 H 12/14/20 04:00 Resp 20 12/14/20 04:00 BP 105/58 12/14/20 04:00 Pulse Ox 100 12/14/20 04:00 Intake & Output 12/13/20 12/14/20 12/14/20 18:59 06:59 18:59 Intake Total 100 125 480 Output Total 750 500 Balance -650 -375 480 Weight 75.5 kg Intake: Intake, IV Titration 50 125 Amount Diltiazem 125 mg In 125 Sodium Chloride 0.9% 100 ml @ 10 MG/HR 10 mls/hr IV .[id number] [facility] Rx#: [id number] Diltiazem 125 mg In 50 Sodium Chloride 0.9% 100 ml @ 15 MG/HR 15 mls/hr IV .[id number] [facility] Rx#: [id number] Oral 50 480 Output: Urine 750 500 Other: Voiding Method Diaper Indwelling Catheter Incontinent # Voids 1 0 - Labs CBC & Chem 7: 12/14/20 05:39 12/14/20 05:39 Labs: Abnormal Lab Results - Last 24 Hours (Table) 12/13/20 12/13/20 12/14/20 Range/Units 08:37 08:37 05:39 WBC 16.7 H (3.8-10.6) k/uL RBC 2.94 L (4.30-5.90) m/uL Hgb 8.4 L (13.0-17.5) gm/dL Hct 27.3 L (39.0-53.0) % MCHC 30.9 L (31.0-37.0) g/dL RDW 20.7 H (11.5-15.5) % Plt Count 53 L (150-450) k/uL Blast Cells % 8 H* % Monocytes # (Manual) 5.01 H (0-1.0) k/uL Metamyelocytes # (Man) 1.67 H (0) k/uL Blast Cells # (Man) 1.34 H (0) k/uL Nucleated RBCs 16 H (0-0) /100 WBC Chloride (98-107) mmol/L Carbon Dioxide (22-30) mmol/L BUN (9-20) mg/dL Glucose (74-99) mg/dL Calcium (8.4-10.2) mg/dL Iron 12 L (65-175) ug/dL TIBC 218 L (228-460) ug/dL % Saturation 5.50 L (15.00-50.00) Ferritin 981.2 H (22.0-322.0) ng/mL Total Protein (PEP) 5.5 L (6.2-8.2) g/dL Vitamin B12 1789.0 H (200.0-944.0) pg/mL Free [place] LC, Quant 4.57 H (0.33-1.94) mg/dL Free Lambda LC, Quant 4.10 H (0.57-2.63) mg/dL 12/14/20 Range/Units 05:39 WBC (3.8-10.6) k/uL RBC (4.30-5.90) m/uL Hgb (13.0-17.5) gm/dL Hct (39.0-53.0) % MCHC (31.0-37.0) g/dL RDW (11.5-15.5) % Plt Count (150-450) k/uL Blast Cells % % Monocytes # (Manual) (0-1.0) k/uL Metamyelocytes # (Man) (0) k/uL Blast Cells # (Man) (0) k/uL Nucleated RBCs (0-0) /100 WBC Chloride 109 H (98-107) mmol/L Carbon Dioxide 20 L (22-30) mmol/L BUN 32 H (9-20) mg/dL Glucose 135 H (74-99) mg/dL Calcium 8.2 L (8.4-10.2) mg/dL Iron (65-175) ug/dL TIBC (228-460) ug/dL % Saturation (15.00-50.00) Ferritin (22.0-322.0) ng/mL Total Protein (PEP) (6.2-8.2) g/dL Vitamin B12 (200.0-944.0) pg/mL Free [place] LC, Quant (0.33-1.94) mg/dL Free Lambda LC, Quant (0.57-2.63) mg/dL Microbiology - Last 24 Hours (Table) 12/12/20 12:26 Acid Fast Bacilli Smear - Final Pleural Fluid Acid Fast Bacilli Culture - Preliminary 12/11/20 21:32 Blood Culture - Preliminary Blood No Growth after 48 hours 12/11/20 21:32 Blood Culture - Preliminary Blood No Growth after 48 hours 12/12/20 12:26 Gram Stain - Preliminary Pleural Fluid Body Fluid Culture - Preliminary
--- NOTE | 2020-12-14 23:38 | PN ---
PROGRESS NOTE DATE OF SERVICE: 12/14/2020 REASON FOR FOLLOWUP: Left lower extremity cellulitis and pneumonia. INTERVAL HISTORY: The patient is afebrile. The patient seems to be slightly more awake and alert today. He is breathing comfortably. Denies having any chest pain. No worsening cough. No abdominal pain or diarrhea. No worsening pain to the left lower extremity. PHYSICAL EXAMINATION: Blood pressure 103/66, pulse of 120, temperature 97.8. He is 100% on 3 L nasal cannula. GENERAL DESCRIPTION: General description is an elderly male lying in bed in no distress. RESPIRATORY SYSTEM: Unlabored breathing. Decreased breath sounds at the bases. No wheeze. HEART: S1, S2. Regular rate and rhythm. ABDOMEN: Soft. No tenderness. Left leg with no significant warmth or drainage. LABS: Hemoglobin 8.4, white count 16.7. BUN of , creatinine 1.09. Pleural fluid cultures currently pending. DIAGNOSTIC IMPRESSION AND PLAN: 1. Patient with pleural effusion, concern for possible pneumonia, left-sided. Status post thoracocentesis with cultures pending. 2. Left lower extremity cellulitis. Patient is covered with Zosyn; to continue while waiting for the culture to finalize and monitor his clinical course closely. MMODL / IJN: [id number] /
[2020-12-15] MEDS: MORPHINE SULFATE 4 MG/ML SYRINGE IVP PRN ×2 (06:41→11:04)
[2020-12-15] MEDS: DILTIAZEM 125 MG in SODIUM CHLORIDE 0.9% 100 ML IV SCH (06:54)
[2020-12-15 07:28] LABS: Methylmalonic Acid 0.27 umol/L (<0.40)
[2020-12-15 08:47] VITALS: BP 122/72; PULSE 120; RESP 18; TEMP 97.5
[2020-12-15] MEDS ORDERED: METOPROLOL SUCCINATE (ER) 50 MG TAB.ER.24H PO SCH (09:00)
[2020-12-15 09:03] LABS: Anisocytosis Moderate; HCT 26.6 % (39.0-53.0); HGB 7.8 gm/dL (13.0-17.5); Hypochromasia Marked; MCH 28.2 pg (25.0-35.0); MCHC 29.3 g/dL (31.0-37.0); Macrocytosis Slight; Mean Platelet Volume 14.9; Poikilocytosis Marked; RBC 2.77 m/uL (4.30-5.90); RDW 20.1 % (11.5-15.5)
[2020-12-15 09:14] LABS: Calcium 8.2 mg/dL (8.4-10.2); Magnesium 2.4 mg/dL (1.6-2.3); Potassium 3.4 mmol/L (3.5-5.1)
--- NOTE | 2020-12-15 10:56 | P.DS ---
Providers Date of admission: 12/11/20 21:42 Expected date of discharge: 12/15/20 Attending physician: Mary Zaldivar Consults: 12/11/20 21:43 Consult Physician Routine Consulting Provider: Everett Wilcox Consult Reason/Comments: Pleural effusion Do you want consulting provider notified?: Yes Consult Physician Routine Consulting Provider: Damon Bryan Consult Reason/Comments: Anemia, troponin elevation Do you want consulting provider notified?: Yes 12/12/20 14:17 Consult Physician Routine Consulting Provider: Aliyah Sheppard Consult Reason/Comments: cellulitis, sepsis Do you want consulting provider notified?: Yes 12/12/20 15:59 Consult Physician Routine Consulting Provider: Marino Barrett Consult Reason/Comments: critical blast cells Do you want consulting provider notified?: Yes Primary care physician: Stated None Hospital Course: Final Diagnosis Acute hypoxic respiratory failure secondary to CHF Sepsis due to left lower extremity chronic cellulitis and possible pneumonia Lactic acidosis, secondary to left lower extremity cellulitis, sepsis, improved Congestive heart failure, acute on chronic, systolic, ejection fraction 40-45% chest x-ray reveals congestive heart failure Anemia of chronic disease Left lower extremity cellulitis, most likely chronic Hypervolemic hyponatremia, resolved Acute toxic encephalopathy related to sepsis A. fib RVR Leukocytosis due to sepsis Bicytopenia - plt 53, hgb 8.4, possibly due to a myelodysplastic disorder or other marrow disorder Elevated troponin secondary to acute on chronic congestive heart failure GI prophylaxis DVT prophylaxis CODE STATUS - NO CODE Discharge disposition Patient is being discharged in a stable condition with guarded prognosis to [facility] for hospice. Total time taken is greater than 35 minutes. Hospital course This is a 89-year-old male, patient is alert and oriented times person. Patient was transferred to our facility from [facility], for pulmonary and ca rdiology services. Per paperwork, patient does not take any home medications, there are no medical diagnoses. Patient is a very poor historian, he states that he does live by himself, he states that he does not see a physician. Patient is able to tell me that he has a son that lives close by, and he has a daughter that lives in [place]. Patient denies any chest pain, shortness of breath, cough. Patient denies any generalized pain. Patient states that the cellulitis to his left lower leg has presented like that for quite a while, he does admit to frequent falls at home. Patient had an extensive workup at [facility], bilateral duplex Doppler was negative for DVT, as well as the left upper extremity was negative for DVT. In addition, patient had a brain CT that was negative for intracranial hemorrhage, CT of the chest that was negative for pulmonary embolism via medical records from [facility]. Patient was found to have a hemoglobin of 6.8, negative Hemoccult, did receive 1 unit of PRBCs. His hemoglobin today is 7.4. Patient was found to have left- sided pulmonary consolidation and pleural fluid, and congestive heart failure on a chest x-ray. It is unsure whether this is acute or chronic. Patient was evaluated by pulmonary services today who ordered a chest ultrasound, plan is for patient to undergo a left chest thoracentesis with Dr. Wilcox today. Alfonso medeiros had an echocardiogram done that revealed an ejection fraction of 40-45%, mild mitral regurgitation, mild tricuspid regurgitation, large pleural effusion. Cardiac enzymes have remained positive 3, 0.420, 0.595, 0.587. Lactic acid on admission was 2.8, patient was treated with a dose of IV Rocephin, IV Vanco. Repeat lactic acid was 4, at this time patient was monitored due to findings of a possible acute congestive heart failure, patient was not fluid resuscitated. Repeat lactic acid this morning was 1.8. Patient is continued on IV Lasix 40 mg every 12 hours. Per family, when patient was brought into the ER, expressed some desire to discuss comfort measures for this patient. Family will be present at the bedside later today. Patient is a DO NOT RESUSCITATE. 12/13/2020 Patient is evaluated today sitting on the bedside with physical therapy. Patient is tachypneic, states that he has been generalized pain everywhere. Patient is still alert to person. Pulse oximetry obtained which revealed a pulse ox in the 70s on room air after working with physical therapy. Patient was assisted back into the bed, and oxygen saturation came up to 100% on 2-3 L nasal cannula. Patient states that he is having quite a bit of pain in that left foot and ankle, there appears to be some mild edema, to the left ankle. Patient has bruising to his left thorax, as well as bruising to his coccyx. Suspect patient has been falling at home, x-rays will be obtained of his left foot and ankle. Patient went into A. fib RVR, was started on IV Cardizem, oral Toprol from cardiology. Patient is on IV antibiotics. Morphine has been increased. Pathology is still pending from left thoracentesis. Patient and 1.8 L removed yesterday from his left lung, that was bloody in appearance. Patien t's hemoglobin is stable today at 8, platelet count 77. Patient's blast cells remain critical. Oncology workup in progress. Patient is febrile 100.4 T-max, heart rate 108, blood pressure 138/72, 99% 2L nc. 12/14/2020 Patient is sitting in the chair after work with PT, patient is alert and oriented 1. Patient is wishing to go home. Patient has severe bruising to his left upper extremity, left lower extremity. Left ankle and foot x-rays are negative for any acute fracture, soft tissue swelling is noted. Patient is maintained on IV Cardizem, IV Zosyn. Patient is 5% on 3 L nasal cannula. He denies any chest pain, cough, shortness of breath. Patient's hemoglobin is stable at 8.4, no signs of acute bleeding. Patient is being evaluated by oncology. Current recommendations are for hospice due to poor prognosis. Pathology is still pending from thoracentesis. Patient is a DO NOT RESUSCITATE. On exam vital signs are stable. Cardio S1, S2 are muffled. Respiratory system shows diminished breath sounds at the bases with wheezing and rhonchi noted. Abdomen is soft and nontender. Nervous system shows diffuse weakness. Please refer to medication reconciliation sheet for a list of medications. Patient Condition at Discharge: Poor Plan - Discharge Summary Discharge Rx Participant: No New Discharge Prescriptions: No Action Ibuprofen [Motrin Ib] 200 mg PO Q8H PRN PRN Reason: Pain Or Fever > 100.5 Docusate [Colace] 100 mg PO DAILY PRN PRN Reason: Constipation Discharge Medication List Docusate [Colace] 100 mg PO DAILY PRN 12/11/20 [History] Ibuprofen [Motrin Ib] 200 mg PO Q8H PRN 12/11/20 [History] Follow up Appointment(s)/Referral(s): None,Stated [Primary Care Provider] - 1-2 days Patient Instructions/Handouts: Hospice (DC)
--- NOTE | 2020-12-15 13:56 | P.PN ---
Subjective Progress Note Date: 12/15/20 89-year-old male patient who presented as a transfer from [facility] in [facility]. apparently he was found on the floor after he had fallen, and it was unknown how much time he had spent on the floor. he reportedly was found by one of his family members. He lives alone. He's had multiple falls at home. he has multiple areas of bruising on his body , upper and lower extremities and torso. He is generally weak, and he is having increased pain and some pain in his left leg which is particularly more bruised and swollen. he reports some dyspnea, but no chest discomfort. he was found to be anemic and had an elevated troponin. chest x-ray on admission showed a large left-sided pulmonary consolidation and pleural fluid. There was pulmonary congestion, there was a tracheal shift to the right. admission labs showed hemoglobin is 7.5, his platelet count was 62, white blood cell count was 13.1, his last cells were 4, INR is 1.4, sodium was 130, potassium is 5.2, chloride is 106, CO2 is 15, BUN was 20, creatinine 0.85, plasma lactic acid was 2.8, calcium was 8.1, total bilirubin was 2.0, AST was 64, ALT was 20, alkaline phosphatase was 61, troponin was 0.4-0, proBNP was 15,400, he was tested for COVID-19 and he was found to be negative. He is a poor historian, however he is awake and alert, he thinks she is at home, he is able to answer simple questions. is febrile with a temp of 101.3 Fahrenheit rectal, slightly tachycardic, in sinus mechanism, he is currently on 6 L of oxygen his pulse ox is 98%, blood pressure is 113/65. he was placed on broad-spectrum antibiotics in the form of Rocephin, and vancomycin was also added. he was started on IV Lasix at 40 mg every 12 hours. patient is unable to tell us about his medical history, but from reviewing his home medications he only takes Motrin and Colace. echocardiogram was completed showing EF between 40-45% , no evidence of aortic regurgitation, mild MR, mild TR, large pleural effusion. ultrasound of the chest has been completed showing 10.9 cm pleural fluid pocket on the left. After contacting h is family ( his [id number] and his son who are currently driving under way to the hospital) consent was obtained for left-sided thoracentesis. Patient's CODE STATUS is DO NOT RESUSCITATE, and the [id number] had stated that hospice and comfort care will possibly be initiated in view of patient's general decline recently. after positioning the patient, and also explained the procedure to him and obtaining verbal consent from the patient himself , 1.8 L of grossly bloody fluid was removed from the left pleural space uneventfully. patient tolerated procedure very well, he is breathing easier, had some slight cough after the procedure, but no significant discomfort, he is setting 100% on 4 L, follow-up chest x-ray showing mild interstitial density, and significant interval improvement of the patient's previous left pleural effusion, there is a small left pleural effusion still remains, mild patchy basilar densities. And possibility of a trace left apical 2.5 mm pneumothorax was a difficult to exclude. And follow-up was recommended. On 12/13/2020 patient seen in follow-up on selective care unit. Patient is resting in bed, however he states that he is hurting all over, he is grimacing, he is moaning, his morphine was increased today for generalized pain. He is currently on 2 L of oxygen, pulse ox is 98%, breathing fairly comfortably, still having some low-grade fevers, with a T-max of 100.2F, he is status post left- sided thoracentesis yesterday with removal of 1.8 L of bloody effusion and the pleural fluid was sent for analysis. Cytology is still pending today, pleural fluid analysis reveals exudative fluid with protein of 3.2 g, and LDH of 395, red blood cells were 574,500. Pleural fluid cultures are pending, patient remains on empiric antibiotics with Zosyn and vancomycin, his labs have been reviewed, his white blood cell count is 8.7, hemoglobin is 8.0, platelet count is 77, his differential was significantly abnormal, with blast cells of 4, sod ium of 135, potassium is 4.1, chloride is 109, CO2 is 18, B1 is 20, creatinine is 1.09. His chest x-ray today shows increasing left lower lobe consolidation with air bronchograms, and subsegmental atelectasis at the right base, and resolution of the prior left apical pneumothorax. Cardiology is also following, echocardiogram has been reviewed, showing mild to moderate impairment of the left ventricular systolic function with an EF of 40-45%. Patient still remains in atrial fibrillation, still slightly tachycardic, with a rate of 106 BPM, and she remains on Cardizem infusion at 15 mg per hour. On 12/15/2020 patient seen in follow-up on selective care unit, he is more lethargic on today's exam, but appears to be no acute distress, he is breathing comfortably, he is currently on 3 L of oxygen pulse ox is 99%, he remains on Zosyn for possibility of pneumonia, his had no acute events overnight, his been afebrile, pleural fluid cytology was negative for malignancy, multiple fluid cultures remain negative as well. Blood cultures have been negative, urine culture is pending. Lab work has been reviewed, white blood cell count is 19.9, hemoglobin currently 7.8, sodium is 139, potassium is 3.4, chloride is 110, CO2 is 19, BUN is 36, creatinine is 1, his urinalysis was suggestive of acute urinary tract infection. ID service is following. Patient is wishing to go home, medical oncology consultation was requested however in view of the family's patient's wishes for supportive treatment only possibility of hospice initiation, oncology service consultation in view of abnormal blast count and possibility of underlying malignancy investigation was canceled. Currently discharge is in progress to [facility] on hospice care. Objective - Vital Signs Vital signs: Vital Signs Temp 97.5 F L 12/15/20 08:15 Pulse 120 H 12/15/20 08:15 Resp 18 12/15/20 08:15 BP 122/72 12/15/20 08:15 Pulse Ox 100 12/15/20 08:15 Intake & Output 12/14/20 12/15/20 12/15/20 18:59 06:59 18:59 Intake Total 600 0 Output Total 300 300 Balance 300 -300 0 Weight 76.5 kg Intake: Oral 600 0 Output: Urine 300 300 Other: Voiding Method Indwelling Catheter Indwelling Catheter Indwelling Catheter - Exam GENERAL EXAM: Lethargic, in moderate amount of distress from generalized discomfort, moaning 89-year-old white male, on 2 L of oxygen, the pulse ox of 90% and able to verbalize his symptoms, patient has multiple areas of bruises on his face, upper and lower extremities, with significantly more bruising and swelling in the left leg, left arm, or areas of bruising on his back, chest, abdomen. he has a history of frequent falls at home HEAD: Normocephalic/atraumatic. EYES: Normal reaction of pupils, equal size. Conjunctiva pink, sclera white. NOSE: Clear with pink turbinates. THROAT: No erythema or exudates. NECK: No masses, no JVD, no thyroid enlargement, no adenopathy. CHEST: No chest wall deformity. Symmetrical expansion. LUNGS: Equal air entry with management of sounds over mid and lower lung jacobo of the left lung CVS: Regular rate and rhythm, normal S1 and S2, no gallops, no murmurs, no rubs ABDOMEN: Soft, nontender. No hepatosplenomegaly, normal bowel sounds, no guarding or rigidity. EXTREMITIES: No clubbing, nonpitting 1+edema bilateral lower extremities, no cyanosis, 2+ pulses and upper and lower extremities. MUSCULOSKELETAL: Muscle strength and tone normal.patient has stiffness, and weakness SPINE: No scoliosis or deformity SKIN: No rashes CENTRAL NERVOUS SYSTEM: Alert and oriented -1. No focal deficits, tone is normal in all 4 extremities. PSYCHIATRIC: Alert and oriented -1. Appropriate affect. Intact judgment and insight. - Labs CBC & Chem 7: 12/15/20 08:27 12/15/20 08:27 Labs: Abnormal Lab Results - Last 24 Hours (Table) 12/15/20 12/15/20 Range/Units 08:27 08:27 WBC 19.9 H (3.8-10.6) k/uL RBC 2.77 L (4.30-5.90) m/uL Hgb 7.8 L (13.0-17.5) gm/dL Hct 26.6 L (39.0-53.0) % MCHC 29.3 L (31.0-37.0) g/dL RDW 20.1 H (11.5-15.5) % Potassium 3.4 L (3.5-5.1) mmol/L Chloride 110 H (98-107) mmol/L Carbon Dioxide 19 L (22-30) mmol/L BUN 36 H (9-20) mg/dL Glucose 154 H (74-99) mg/dL Calcium 8.2 L (8.4-10.2) mg/dL Magnesium 2.4 H (1.6-2.3) mg/dL Microbiology - Last 24 Hours (Table) 12/12/20 12:26 Gram Stain - Preliminary Pleural Fluid Body Fluid Culture - Preliminary 12/11/20 21:32 Blood Culture - Preliminary Blood No Growth after 72 hours 12/11/20 21:32 Blood Culture - Preliminary Blood No Growth after 72 hours 12/14/20 11:15 Urine Culture - Preliminary Urine,Voided Assessment and Plan Plan: assessment: #1. Acute hypoxic respiratory failure related to large left-sided pleural effusion, possibility of acute CHF exacerbation and underlying pneumonia. COVID- 19 PCR was negative. Pleural fluid cultures and cytology are negative #2. Large left-sided pleural effusion, status post left-sided thoracentesis would removal of 1.8 L of grossly bloody effusion on 12/12/[address] Franco, and the pleural fluid was sent for analysis. This could be related to traumatic hemothorax related to frequent falls, and possibility of malignancy is also considered. Pleural fluid cytology was negative, this is likely traumatic hemo thorax #3. Anemia, likely related to acute blood loss, large hemothorax, possible traumatic. patient presented with a hemoglobin of 7.5. #4. Abnormal blast count, oncology consulted #5. Tachycardia, likely reactive possible sinus mechanism, rule out possibility of atrial fibrillation, being followed by cardiology, continues on Cardizem #6. Possible underlying pneumonia, patient is currently on a combination of Rocephin, vancomycin was added #7. Thrombocytopenia, multifactorial, possibly related to underlying sepsis, and trauma #8. Lactic acidosis, rule out possibility of sepsis #9. Mild troponin elevation, cardiology is following, rule out possibility of non-ST limited myocardial infarction #10. Acute exacerbation of systolic CHF #11. Multiple falls at home, and patient was reportedly found down by his family, and it is unknown how much time he had spent on the ground #12. Multiple areas of ecchymosis all over the body, including upper and lower extremities, back, torso, and face related to falls #13. Overall generally declining medical state according to the patient's family, however patient lives alone according to the family reports. Family is currently considering palliative care hospice referral Plan: Pleural fluid cytology and cultures remain negative No evidence of any respiratory distress Patient is currently on 3 L of oxygen, breathing fairly comfortably, Vital signs are stable, Patient is requiring pain medications for generalized discomfort Discharge is planned for [facility] under hospice care per patient and family wishes I performed a history & physical examination of the patient and discussed their management with my nurse practitioner, Kayleigh Dobbs. I reviewed the nurse practitioner's note and agree with the documented findings and plan of care. Lung sounds are positive for diminished breath sounds throughout the lung f ields. The findings and the impression was discussed with the patient. I attest to the documentation by the nurse practitioner. Time with Patient: Less than 30
[2020-12-15 14:06] LABS: Neutrophils % (M) 34 %
[2020-12-15 14:10] LABS: Band Neutrophils % 2 %
[2020-12-15 14:14] LABS: Metamyelocytes % 4 %; Myelocytes % 10 %; Nucleated Red Blood Cells 19 /100 WBC (0-0); Total Cells Counted 200
[2020-12-15 14:15] LABS: Lymphocytes # (M) 3.34 k/uL (1.0-4.8); Metamyelocytes # (M) 0.67 k/uL (0); Monocytes # (M) 4.84 k/uL (0-1.0); Myelocytes # (M) 1.67 k/uL (0); Polychromasia Present; WBC 16.7 k/uL (3.8-10.6)
[2020-12-15 14:17] LABS: RBC Fragments Present
[2020-12-15 14:19] LABS: Platelet Count 42 k/uL (150-450)
== END 2020-12-15 11:30 | DRG 199 ==
LOC: EC 20:29 → 3SCARD 21:42
PROVIDERS: ADMIT Hospitalist; ATTEND Hospitalist
PROC: 0W9B3ZX Drainage of Left Pleural Cavity, Percutaneous Approach, Diagnostic (ICD-10-PCS; principal; 2020-12-12)
DX: S27.1XXA Traumatic hemothorax, initial encounter (principal); I50.23 Acute on chronic systolic (congestive) heart failure; J96.01 Acute respiratory failure with hypoxia; G92 Toxic encephalopathy; A41.9 Sepsis, unspecified organism; R65.20 Severe sepsis without septic shock; J18.9 Pneumonia, unspecified organism; L03.116 Cellulitis of left lower limb; E87.2 Acidosis; E87.1 Hypo-osmolality and hyponatremia; J98.11 Atelectasis; D62 Acute posthemorrhagic anemia; L03.115 Cellulitis of right lower limb; Z20.822 Contact with and (suspected) exposure to COVID-19; Z66 Do not resuscitate; Z51.5 Encounter for palliative care; R62.7 Adult failure to thrive; S40.022A Contusion of left upper arm, initial encounter; I48.0 Paroxysmal atrial fibrillation; D46.9 Myelodysplastic syndrome, unspecified; S80.12XA Contusion of left lower leg, initial encounter; R23.3 Spontaneous ecchymoses; I08.1 Rheumatic disorders of both mitral and tricuspid valves; D69.6 Thrombocytopenia, unspecified; I71.9 Aortic aneurysm of unspecified site, without rupture; F03.90 Unspecified dementia, unspecified severity, without behavioral disturbance, psychotic disturbance, mood disturbance, and anxiety; D63.8 Anemia in other chronic diseases classified elsewhere; R53.1 Weakness; R29.6 Repeated falls; M79.602 Pain in left arm; R60.0 Localized edema; Z91.81 History of falling; W19.XXXA Unspecified fall, initial encounter; Y92.009 Unspecified place in unspecified non-institutional (private) residence as the place of occurrence of the external cause
CPT/HCPCS: 71045; 71046; 76604; 80048; 80053; 80202; 81001; 82607; 82728; 82747; 82945; 83540; 83550; 83605; 83615; 83735; 83880; 83883; 83921; 84145; 84157; 84165; 84484; 85025; 85610; 85730; 86038; 86334; 86431; 86850; 86900; 86901; 87040; 87070; 87086; 87102; 87116; 87205; 87206; 87252; 87496; 87498; 87502; 87529; 87634; 87635; 87798; 88108; 88305; 89050; 93005; 93306; 94760; 96365; 96366; 96375; 96376; 99285